=== PATIENT | male | born 1995 ===

== ENCOUNTER 2018-01-04 18:01 | Inpatient (IN) | payer MEDICAID, OTHER ==
--- NOTE | 2018-01-04 18:34 | C.PDOC ---
History Of Present Illness 22 y/o male presents to ED requesting Heroin detox. Patient states last used was 3 hours ago and currently denies suicidal ideation, homicidal ideation or any physical complaints at this time. Time Seen by Provider: 01/04/18 18:24 Chief Complaint (Nursing): Substance Abuse History Per: Patient History/Exam Limitations: no limitations Onset/Duration Of Symptoms: Days Current Symptoms Are (Timing): Still Present Suicide/Self Injury Attempted (Context): None Past Medical History Reviewed: Historical Data, Nursing Documentation, Vital Signs Vital Signs: Last Vital Signs Temp 98 F 01/04/18 20:26 Pulse 72 01/04/18 20:26 Resp 18 01/04/18 20:26 BP 107/70 01/04/18 20:26 Pulse Ox 97 01/04/18 20:26 - Medical History PMH: Anxiety, Depression Surgical History: No Surg Hx Family History: States: No Known Family Hx - Social History Hx Alcohol Use: Yes Hx Substance Use: Yes - Immunization History Hx Tetanus Toxoid Vaccination: No Hx Influenza Vaccination: No Hx Pneumococcal Vaccination: No Review Of Systems Constitutional: Negative for: Fever, Chills Cardiovascular: Negative for: Chest Pain Respiratory: Negative for: Shortness of Breath Skin: Negative for: Rash Psych: Negative for: Suicidal ideation, Withdrawal Physical Exam - Physical Exam Appears: Non-toxic, No Acute Distress Skin: Warm, Dry, No Rash Head: Atraumatic, Normacephalic Eye(s): bilateral: Normal Inspection Oral Mucosa: Moist Neck: Normal ROM, Supple Cardiovascular: Rhythm Regular Respiratory: Normal Breath Sounds, No Rales, No Rhonchi, No Wheezing Gastrointestinal/Abdominal: Soft, No Tenderness, No Guarding, No Rebound Extremity: Normal ROM, Capillary Refill (<2 seconds) Neurological/Psych: Oriented x3, Normal Speech, Normal Cognition ED Course And Treatment - Laboratory Results Result Diagrams: 01/04/18 19:00 01/04/18 19:00 O2 Sat by Pulse Oximetry: 98 (RA) Pulse Ox Interpretation: Normal Medical Decision Making Medical Decision Makin:40 Medically cleared Disposition - Disposition Disposition: HOSPITALIZED Disposition Time: 08:00 Condition: STABLE - Clinical Impression Clinical Impression: Drug abuse - Scribe Statement The provider has reviewed the documentation as recorded by the Brandenibemanuel Loredo All medical record entries made by the Scribe were at my direction and personally dictated by me. I have reviewed the chart and agree that the record accurately reflects my personal performance of the history, physical exam, medical decision making, and the department course for this patient. I have also personally directed, reviewed, and agree with the discharge instructions and disposition. Decision To Admit - Pt Status Changed To: Hospital Disposition Of: Inpatient - Admit Certification Admit to Inpatient:: After my assessment, the patient will require hospitalization for at least two midnights. This is because of the severity of symptoms shown, intensity of services needed, and/or the medical risk in this patient being treated as an outpatient. - InPatient: Physician Admission Certification: I certify that this patient requires 2 or more midnights of care for the following reason:: needs detox - . Bed Request Type: Detox Admitting Physician: Alexandra Burns Patient Diagnosis: Drug abuse
[2018-01-04 19:09] LABS: BASO % 0.7 % (0.0-2.0); EOS # 0.2 K/uL (0.0-0.7); EOS % 2.4 % (0.0-4.0); HEMOGLOBIN 15.3 g/dL (12.0-18.0); LYMPH # 2.7 K/uL (1.0-4.3); LYMPH % 41.9 % (20.0-40.0); MEAN CELL VOLUME 93.7 fL (80.0-94.0); MEAN CORPUSCULAR HEMOGLOBIN 33.4 pg (27.0-31.0); MEAN CORPUSCULAR HGB CONC 35.6 g/dL (33.0-37.0); MEAN PLATELET VOLUME 9.2 fL (7.2-11.7); MONO # 0.5 K/uL (0.0-0.8); MONO % 7.2 % (0.0-10.0); NEUT # 3.1 K/uL (1.8-7.0); NEUT % 47.8 % (50.0-75.0); NRBC % 0.1 % (0.0-2.0); RBC 4.58 Mil/uL (4.40-5.90); RED CELL DISTRIBUTION WIDTH 12.6 % (11.5-14.5); WHITE BLOOD COUNT 6.5 K/uL (4.8-10.8)
[2018-01-04 19:12] LABS: SQUAMOUS EPITHIAL 1 /hpf (0-5); URINE BACTERIA RARE (<OCC); URINE BILIRUBIN NEGATIVE (NEGATIVE); URINE BLOOD NEGATIVE (NEGATIVE); URINE CLARITY Hazy (Clear); URINE COLOR Amber (YELLOW); URINE GLUCOSE (UA) NORMAL (Normal); URINE LEUKOCYTE ESTERASE NEG Leu/uL (Negative); URINE PROTEIN NEGATIVE (NEGATIVE); URINE UROBILINOGEN NORMAL mg/dL (0.2-1.0)
[2018-01-04 19:21] LABS: ALB/GLOB RATIO 1.2 (1.0-2.1); ALBUMIN 4.4 g/dL (3.5-5.0); ALT/SGPT 21 U/L (21-72); AST/SGOT 16 U/L (17-59); BLOOD UREA NITROGEN 11 mg/dL (9-20); CALCIUM 9.4 mg/dl (8.6-10.4); GFR AFRICAN-AMERICAN > 60; GFR NON-AFRICAN AMERICAN > 60
[2018-01-04 19:29] LABS: BARBITURATES, UR NEGATIVE (NEGATIVE); BENZODIAZEPINES, UR NEGATIVE (NEGATIVE); PHENCYCLIDINE, UR NEGATIVE (NEGATIVE)
[2018-01-04 19:30] LABS: OPIATES, UR POSITIVE (NEGATIVE)
--- NOTE | 2018-01-04 20:21 | PCM.BM ---
<Julian Ramirez - Last Filed: 01/04/18 20:20> Treatment Plan Problems - Problems identified on initial assessmt potential for opiatr withdrawal Date Initiated: 01/04/18 Time Initiated: 20:21 Status: Active Treatment assets and liabiliti Patient Assests: ADL independent, physically healthy, negotiates basic needs Patient Liabilities: substance abuse - Milieu Protocol Maintain good personal hygiene: daily Encourage regular showers, daily Remind patient to perform daily oral care, daily Assist patient to perform ADL's Conduct patient checks and document Observation sheet: Q15 minutes Maintain personal safety: every shift Educate patient to report safety concerns to staff, every shift Monitor environment for contraband/sharps Medication safety: Monitor for expected outcome, potential side effects: every shift, Assess barriers to learning: every shift, Assess readiness for medication education: every shift <Ann-Marie Wallace - Last Filed: 01/08/18 12:11> - Diagnosis (1) Opioid use disorder, severe, dependence Status: Acute Interventions: 01/08/18 12:11 * Assess 7x/week regarding severity of withdrawal * Educate regarding risks, benefits, side effects and alternatives of medications * Use Motivational Interviewing for abstinence * Use CBT for relapse prevention * Medication management for withdrawal symptoms * Encourage medication assisted treatment *
[2018-01-04] MEDS ORDERED: Aluminum Hydroxide/Magnesium Hydroxide Susp (30 mL) PO PRN (22:23)
--- NOTE | 2018-01-05 07:01 | PCM.PSYCH ---
Initial Psychiatric Evaluation - Initial Psychiatric Evaluation Type of Admission: Voluntary Legal Status: Capacity Chief Complaint (in patient's own words): I came to get help.' History of Present Illness and Precipitating Events: Pt is a 22 year old HM, unemployed, who lives with his father, presented to [facility] to get help in heroin detox. Pt shoots about 6-8 bags of heroin on a daily basis as well as smoking 7-8 cigarettes daily. Pt denies drinking alcohol and using cocaine. Pt stated, I just started smoking cocaine 5 months ago, I sniff about to 1 gram when I do. 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 Pt has been to [facility] 3 weeks ago but AMA. Pt stated the Vivitro did help. Pt has a hx of arrest of drug possessions and assaults, he was incarcerated in 2013 for an assault, he was in half-way for three years. Pt is on probation and states, I will call her when I get out. He denies any past history of inpatient psychiatric hospitalizations or any follow-up with any psychiatrist. He reports irritability , but denies any feelings of hopelessness and helplessness. He denies suicidal ideation or homicidal ideations. he denies any auditory or visual hallucinations or any psychosis. He reports withdrawal symptoms from heroin including nausea, vomiting, diarrhea, abdominal cramps and pains. Past medical history None reported Current Medications: Active Medications Generic Name Dose Route Start Last Admin Trade Name Freq PRN Reason Stop Dose Admin Acetaminophen 650 mg 01/04/18 22:23 Tylenol 325mg Tab PO Q4H PRN Fever greater than 101 F Al Hydrox/Mg Hydrox/Simethicone 30 ml 01/04/18 22:23 Maalox 30 Ml PO TID PRN Indigestion / Heartburn Clonidine HCl 0.1 mg 01/04/18 21:45 Catapres PO Q8 PRN COWS Score More or Equal to 5 Hydroxyzine HCl 25 mg 01/04/18 22:24 Atarax PO Q6 PRN Agitation Loperamide HCl 2 mg 01/04/18 21:42 Imodium PO Q8 PRN Diarrhea Nicotine 1 patch 01/05/18 10:00 Nicoderm Cq TD DAILY MAYELA Ondansetron HCl 4 mg 01/04/18 21:42 Zofran Tab PO Q8 PRN Nausea/Vomiting Pseudoephedrine HCl 60 mg 01/04/18 22:23 Sudafed Tab PO QID PRN Nasal/Sinus Congestion Trazodone HCl 50 mg 01/04/18 21:43 Desyrel PO HS PRN Sleep Past Psychiatric History - Past Psychiatric History Previous Treatment History: Inpatient Pertinent Medical Hx (Current Medical&Sleep Prob, Allergies): Allergies Allergy/AdvReac Type Severity Reaction Status Date / Time No Known Allergies Allergy Verified 01/04/18 18:13 No Known Home Med 01/04/18 Review of Systems - Review of Systems All systems: reviewed and no additional remarkable complaints except - Psychiatric Psychiatric: Anxiety, Irritability. absent: Suicidal Ideation Mental Status Examination - Personal Presentation Personal Presentation: Looks stated age - Affect Affect: Constricted - Motor Activity Motor Activity: Calm - Reliability in Providing Information Reliability in Providing Information: Fair - Speech Speech: Organized - Mood Mood: Anxious - Formal Thought Process Formal Thought Process: No Impairment - Obsessions/Compulsions Obsessions: No Compulsions: No - Cognitive Functions Orientation: Person, Place, Situation, Time Sensorium: Alert Attention/Concentration: Attentive Abstract Thinking: [place] Estimate of Intelligence: Below average Judgement: Imparied, as evidence by: Poor judgement, Imparied, as evidence by: Lack of insight into illness - Risk Risk: Withdrawal, Diminished functioning - Strength & Assets Inventory Strength & Assets Inventory: Family support DSM 5 DX - DSM 5 DSM 5 Diagnosis: Opiate use disorder severe Opiate withdrawal Cocaine use disorder moderate - Recommended/Plan of Treatment Treatment Recommendations and Plan of Treatment: Opioid use disorder severe CBT Psychoeducation Supportive therapy, individual therapy Use DE for abstinence Opioid withdrawal CBT Psychoeducation Supportive therapy, individual therapy Clonidine when necessary Subutax taper Cocaine use disorder moderate Monitor signs and symptoms Use DE for abstinence - Smoking Cessation Smoking Cessation Initiated: No
[2018-01-05] MEDS ORDERED: Buprenorphine Hydrochloride 2 mg SL ONE ×2 (16:13→17:14)
[2018-01-06] MEDS ORDERED: Buprenorphine Hydrochloride 2 mg SL ONE (10:00)
--- NOTE | 2018-01-06 15:28 | PCM.PYCHPN ---
Psychiatric Progress Note - Psychiatric Progress Note Patient seen today, length of contact: 15 min Patient Chief Complaint: I came to get help.' Problems Identified/Issues Discussed: Patient seen and evaluated, chart reviewed and discussed with the nurse. Patient still reports withdrawal symptoms including nausea, cramps, sweating and headaches. He denies any feelings of hopelessness and helplessness. Patient denies any auditory or visual hallucinations, or any psychotic symptoms. He reports improvement in his sleep and appetite. He is tolerating the withdrawal medications and denies any side effects. Supportive therapy and psychoeducation were given. Medication Change: Yes Medical Record Reviewed: Yes Mental Status Examination - Cognitive Function Orientation: Person, Place, Situation, Time Memory: Intact Attention: WNL Concentration: Poor Association: WNL Fund of Knowledge: Poor - Mood Mood: Anxious - Affect Affect: Constricted - Speech Speech: Soft - Formal Thought Process Formal Thought Process: No Impairment - Suicidal Ideation Suicidal Ideation: No - Homicidal Ideation Homicidal Ideation: No Goal/Treatment Plan - Goal/Treatment Plan Need for Continued Stay: Severe depression anxiety, Severe functional impairment Progress Toward Problem(s) and Goals/Treatment Plan: Opioid use disorder severe CBT Psychoeducation Supportive therapy, individual therapy Use MO for abstinence Opioid withdrawal CBT Psychoeducation Supportive therapy, individual therapy Clonidine when necessary Subutax taper Cocaine use disorder moderate Monitor signs and symptoms Use MO for abstinence - Smoking Cessation Smoking Cessation Initiated: No
--- NOTE | 2018-01-07 09:09 | PCM.PYCHPN ---
Psychiatric Progress Note - Psychiatric Progress Note Patient seen today, length of contact: 15 min Patient Chief Complaint: I came to get help.' Problems Identified/Issues Discussed: Patient seen and evaluated, chart reviewed and discussed with the nurse. Patient still reports withdrawal symptoms including nausea, cramps, sweating and headaches. He reports improvement in his sleep and appetite. He denies any feelings of hopelessness and helplessness. Patient denies any auditory or visual hallucinations, or any psychotic symptoms. He is tolerating the withdrawal medications and denies any side effects. Supportive therapy and psychoeducation were given. Medication Change: Yes Medical Record Reviewed: Yes Mental Status Examination - Cognitive Function Orientation: Person, Place, Situation, Time Memory: Intact Attention: WNL Concentration: Poor Association: WNL Fund of Knowledge: Poor - Mood Mood: Anxious - Affect Affect: Constricted - Speech Speech: Soft - Formal Thought Process Formal Thought Process: No Impairment - Suicidal Ideation Suicidal Ideation: No - Homicidal Ideation Homicidal Ideation: No Goal/Treatment Plan - Goal/Treatment Plan Need for Continued Stay: Severe depression anxiety, Severe functional impairment Progress Toward Problem(s) and Goals/Treatment Plan: Opioid use disorder severe CBT Psychoeducation Supportive therapy, individual therapy Use MT for abstinence Opioid withdrawal CBT Psychoeducation Supportive therapy, individual therapy Clonidine when necessary Subutax taper Cocaine use disorder moderate Monitor signs and symptoms Use MT for abstinence
[2018-01-07] MEDS: Buprenorphine Hydrochloride 2 mg SL SCH (09:14)
[2018-01-08] MEDS: Buprenorphine Hydrochloride 2 mg SL SCH (10:40)
--- NOTE | 2018-01-08 12:11 | PCM.PYCHPN ---
Psychiatric Progress Note - Psychiatric Progress Note Patient seen today, length of contact: 18 min Patient Chief Complaint: "i feel better" Problems Identified/Issues Discussed: The pt is seen, chart reviewed, case discussed with staff. The pt is compliant with medications and reports no side-effects. Symptoms are improving but needs more time to stabilize. After care discussed, support and psychoeducation given. Medication Change: Yes (detox changes daily) Medical Record Reviewed: Yes Mental Status Examination - Cognitive Function Orientation: Person, Place, Situation, Time Memory: Intact Attention: WNL Concentration: Poor Association: WNL Fund of Knowledge: Poor - Mood Mood: Anxious - Affect Affect: Constricted - Speech Speech: Soft - Formal Thought Process Formal Thought Process: No Impairment - Suicidal Ideation Suicidal Ideation: No - Homicidal Ideation Homicidal Ideation: No Goal/Treatment Plan - Goal/Treatment Plan Need for Continued Stay: Discharge may exacerbated symptoms, Severe functional impairment Progress Toward Problem(s) and Goals/Treatment Plan: Taper with subutex Gabapentin for augmentation if needed As needed medications All risks, benefits and alternatives of the meds discussed, and the pt agreed and understood. Attend groups and activities Supportive therapy and psychoeducation VT for abstinence CBT for relapse prevention Encourage MAT Refer to rehab or IOP, and self-help groups Smoking cessation with VT Nicotine patch if needed Estimated Date of D/C: 01/10/18 - Smoking Cessation Smoking Cessation Initiated: Yes
[2018-01-09] MEDS: Buprenorphine Hydrochloride 2 mg SL SCH (09:59)
--- NOTE | 2018-01-09 12:54 | PCM.PYCHPN ---
Psychiatric Progress Note - Psychiatric Progress Note Patient seen today, length of contact: 15 min Patient Chief Complaint: "I can't sleep well" Problems Identified/Issues Discussed: The pt is seen, chart reviewed, case discussed with staff. Support and psychoeducation given, CBT and NM used briefly No new symptoms reported, improving slowly and needs more time No SEs from medications, risks discussed. After care discussed - wants Vivitrol Medication Change: Yes (detox changes daily) Medical Record Reviewed: Yes Mental Status Examination - Cognitive Function Orientation: Person, Place, Situation, Time Memory: Intact Attention: WNL Concentration: Poor Association: WNL Fund of Knowledge: Poor - Mood Mood: Anxious - Affect Affect: Constricted - Speech Speech: Soft - Formal Thought Process Formal Thought Process: No Impairment - Suicidal Ideation Suicidal Ideation: No - Homicidal Ideation Homicidal Ideation: No Goal/Treatment Plan - Goal/Treatment Plan Need for Continued Stay: Severe depression anxiety, Severe functional impairment Progress Toward Problem(s) and Goals/Treatment Plan: Taper with subutex Gabapentin for augmentation if needed As needed medications All risks, benefits and alternatives of the meds discussed, and the pt agreed and understood. Attend groups and activities Supportive therapy and psychoeducation NM for abstinence CBT for relapse prevention Encourage MAT Refer to rehab or IOP, and self-help groups Smoking cessation with NM Nicotine patch if needed Estimated Date of D/C: 01/10/18
[2018-01-10 05:58] VITALS: O2SAT 99
[2018-01-10 08:30] VITALS: BP 108/66; PULSE 73; RESP 19; TEMP 97.6
--- NOTE | 2018-01-10 08:38 | PCM.PYCHDC ---
Mental Status Examination - Mental Status Examination Orientation: Person, Place, Situation, Time Memory: Intact Mood: Anxious Affect: Constricted Speech: Appropriate Attention: WNL Concentration: WNL Association: WNL Fund of Knowledge: WNL Formal Thought Process: No Impairment Suicidal Ideation: No Current Homicidal Ideation?: No Discharge Summary - Discharge Note Reason for Hospitalization: Opioid detox Consultations:: List each consultation separately and include: 1. Reason for request. 2. Findings. 3. Follow-up Summary of Hospital Course include:: 1. Description of specific treatment plan utilized for patients during their course of treatmen. 2. Summarize the time- course for resolution of acute symptoms and/or regressed behaviors. 3. Describe issues identified and worked on during hospitalization. 4. Describe medication utilized. 5. Describe medical problems identified and treated. 6. Reassessment of suicide risk Summary of Hospital Course: The pt was admitted and started on treatment with psychotherapy, support, psychoeducation and medications. [place] and CBT used. The pt attended groups and activities, as well as milieu therapy. All the risks and benefits of medications are discussed and the patient understood and agreed. The pt improved with the treatments provided. After care discussed with the patient. He will go to a [facility] dr or clinic ( [facility]) but he also considers Suboxone. - Final Diagnosis (DSM 5) Condition upon Discharge: STABLE DSM 5: Opioid use disorder severe Opioid withdrawal Cocaine use disorder moderate Disposition: HOME/ ROUTINE Follow-up Treatment Plan: Continue below medications after discharge. Follow after care plan as discussed. Use relapse prevention skills Return to ER or call 911 if suicidal, homicidal or symptoms relapse. Stay away from stress, alcohol and drugs. See primary doctor regularly and get labs. Prescriptions/Medication Reconciliation: hydrOXYzine HCl [Atarax] 25 mg PO BID PRN #60 tab PRN Reason: Agitation QUEtiapine [SEROquel] 50 mg PO HS #30 tab traZODone [Desyrel] 100 mg PO HS PRN #30 tab PRN Reason: Sleep
[2018-01-10] MEDS ORDERED: Buprenorphine Hydrochloride 2 mg SL ONE (10:00)
== END 2018-01-10 09:45 | disposition home or self-care (01) | DRG 745 ==
LOC: C.ER 18:01 → C.7D 19:54
PROVIDERS: ADMIT Psychiatry & Neurology Psychiatry; ATTEND Psychiatry & Neurology Psychiatry
PROC: HZ2ZZZZ Detoxification Services for Substance Abuse Treatment (ICD-10-PCS; principal; 2018-01-04)
PROC: HZ59ZZZ Individual Psychotherapy for Substance Abuse Treatment, Supportive (ICD-10-PCS; 2018-01-04)
PROC: HZ46ZZZ Group Counseling for Substance Abuse Treatment, Psychoeducation (ICD-10-PCS; 2018-01-04)
DX: F11.23 Opioid dependence with withdrawal (principal); F14.20 Cocaine dependence, uncomplicated; F17.210 Nicotine dependence, cigarettes, uncomplicated

== ENCOUNTER 2018-02-25 15:25 | Inpatient (IN) | payer MEDICAID ==
--- NOTE | 2018-02-25 16:00 | C.PDOC ---
History Of Present Illness 23 year old male presents to the ER requesting detox from heroin and cocaine. Patient has no physical complaints at this time. He denies suicidal or homicidal ideations. Time Seen by Provider: 02/25/18 15:53 Chief Complaint (Nursing): Substance Abuse History Per: Patient History/Exam Limitations: no limitations Onset/Duration Of Symptoms: Days Current Symptoms Are (Timing): Still Present Modifying Factor(s): Narcotics, Cocaine Severity: Moderate Associated Symptoms: denies: Suicidal Thoughts Past Medical History Reviewed: Historical Data, Nursing Documentation, Vital Signs Vital Signs: Last Vital Signs Temp 98.4 F 02/27/18 06:35 Pulse 62 02/27/18 06:35 Resp 16 02/27/18 06:35 BP 106/61 02/27/18 06:35 Pulse Ox 96 02/27/18 12:10 - Medical History PMH: Anxiety, Depression Surgical History: No Surg Hx - [facility] DETOXIFICATION SERVICES FOR SUBSTANCE ABUSE TREATMENT (01/04/18) GROUP TRANSFER [employer]PER[employer] DRIER FOR SUBSTANCE ABUSE TREATMENT, PSYCHOEDUCATION (01/04/18) INDIV PSYCHOTHERAPY FOR SUBSTANCE ABUSE TREATMENT, SUPPORT (01/04/18) Family History: States: No Known Family Hx - Social History Hx Alcohol Use: Yes Hx Substance Use: Yes - Immunization History Hx Tetanus Toxoid Vaccination: No Hx Influenza Vaccination: No Hx Pneumococcal Vaccination: No Review Of Systems Constitutional: Negative for: Fever Cardiovascular: Negative for: Chest Pain Respiratory: Negative for: Cough, Shortness of Breath Gastrointestinal: Negative for: Nausea, Vomiting Neurological: Negative for: Headache, Dizziness Psych: Positive for: Other (substance abuse ). Negative for: Anxiety, Depression, Suicidal ideation, Withdrawal Physical Exam - Physical Exam Appears: Well, Non-toxic, No Acute Distress, Other (flat affect) Skin: Warm, Dry, No Rash Head: Atraumatic, Normacephalic Eye(s): bilateral: Normal Inspection Oral Mucosa: Moist Cardiovascular: Rhythm Regular Respiratory: Normal Breath Sounds, No Rales, No Rhonchi, No Wheezing Gastrointestinal/Abdominal: Normal Exam, Bowel Sounds, Soft, No Tenderness Extremity: Bilateral: Atraumatic, Normal Color And Temperature, Normal ROM Neurological/Psych: Oriented x3 Gait: Steady ED Course And Treatment - Laboratory Results Result Diagrams: 02/25/18 16:56 02/25/18 16:56 O2 Sat by Pulse Oximetry: 96 (RA) Pulse Ox Interpretation: Normal Progress Note: Blood work, UA, UDS ordered amd reviewed. 18:40- Patient medically cleared. 19:10- Patient accepted for detox admission by Dr. Mendez. Disposition Counseled Patient/Family Regarding: Studies Performed, Diagnosis - Disposition Disposition: HOSPITALIZED Disposition Time: 19:10 Condition: STABLE - Clinical Impression Clinical Impression: Opioid use disorder, severe, dependence - Scribe Statement The provider has reviewed the documentation as recorded by the Yvette Dalton Provider Attestation: All medical record entries made by the Yvette were at my direction and personally dictated by me. I have reviewed the chart and agree that the record accurately reflects my personal performance of the history, physical exam, medical decision making, and the department course for this patient. I have also personally directed, reviewed, and agree with the discharge instructions and disposition. Decision To Admit - Pt Status Changed To: Hospital Disposition Of: Inpatient - Admit Certification Admit to Inpatient:: After my assessment, the patient will require hospitalization for at least two midnights. This is because of the severity of symptoms shown, intensity of services needed, and/or the medical risk in this patient being treated as an outpatient. - InPatient: Physician Admission Certification: I certify that this patient requires 2 or more midnights of care for the following reason:: see notes - . Bed Request Type: Detox Admitting Physician: Elmer Mendez Patient Diagnosis: Opioid use disorder, severe, dependence
[2018-02-25 17:05] LABS: BASO % 0.6 % (0.0-2.0); EOS # 0.2 K/uL (0.0-0.7); EOS % 2.7 % (0.0-4.0); HEMOGLOBIN 15.8 g/dL (12.0-18.0); LYMPH # 2.3 K/uL (1.0-4.3); LYMPH % 39.1 % (20.0-40.0); MEAN CELL VOLUME 93.7 fL (80.0-94.0); MEAN CORPUSCULAR HEMOGLOBIN 32.4 pg (27.0-31.0); MEAN CORPUSCULAR HGB CONC 34.6 g/dL (33.0-37.0); MEAN PLATELET VOLUME 9.1 fL (7.2-11.7); MONO # 0.5 K/uL (0.0-0.8); NEUT # 2.9 K/uL (1.8-7.0); NEUT % 49.6 % (50.0-75.0); RBC 4.88 Mil/uL (4.40-5.90); WHITE BLOOD COUNT 5.9 K/uL (4.8-10.8)
[2018-02-25 17:15] LABS: SQUAMOUS EPITHIAL < 1 /hpf (0-5); URINE BILIRUBIN NEGATIVE (NEGATIVE); URINE BLOOD NEGATIVE (NEGATIVE); URINE CLARITY Hazy (Clear); URINE COLOR Amber (YELLOW); URINE GLUCOSE (UA) NORMAL (Normal); URINE LEUKOCYTE ESTERASE NEG Leu/uL (Negative); URINE PROTEIN NEGATIVE (NEGATIVE)
[2018-02-25 17:20] LABS: ALB/GLOB RATIO 1.6 (1.0-2.1); ALBUMIN 4.7 g/dL (3.5-5.0); ALT/SGPT 16 U/L (21-72); AST/SGOT 20 U/L (17-59); BLOOD UREA NITROGEN 10 mg/dL (9-20); CALCIUM 9.3 mg/dl (8.6-10.4); GFR AFRICAN-AMERICAN > 60; GFR NON-AFRICAN AMERICAN > 60
[2018-02-25 17:43] LABS: BARBITURATES, UR NEGATIVE (NEGATIVE); BENZODIAZEPINES, UR NEGATIVE (NEGATIVE); PHENCYCLIDINE, UR NEGATIVE (NEGATIVE)
[2018-02-25 17:44] LABS: OPIATES, UR POSITIVE (NEGATIVE)
--- NOTE | 2018-02-25 20:03 | PCM.BM ---
<Julian Ramirez - Last Filed: 02/25/18 20:01> Treatment Plan Problems - Problems identified on initial assessmt potential for opiate withdrawal Date Initiated: 02/25/18 Time Initiated: 20:02 Status: Active Treatment assets and liabiliti Patient Assests: ADL independent, physically healthy, negotiates basic needs Patient Liabilities: substance abuse - Milieu Protocol Maintain good personal hygiene: daily Encourage regular showers, daily Remind patient to perform daily oral care, daily Assist patient to perform ADL's Conduct patient checks and document Observation sheet: Q15 minutes Maintain personal safety: every shift Educate patient to report safety concerns to staff, every shift Monitor environment for contraband/sharps Medication safety: Monitor for expected outcome, potential side effects: every shift, Assess barriers to learning: every shift, Assess readiness for medication education: every shift <Rocío Bah - Last Filed: 02/27/18 09:03> Family Contact Family involvement: Famliy/SO not involved - Goals for Treatment Patient goals for treatment: Complete detox and apply for short-term rehab. Discharge/Continuing Care - Education Needs Education Needs: Patient Medication, Patient Diagnosis/Disease Process, Patient Coping Skills, Patient Anger Management skills, Patient Placement options, Patient Community resources - Discharge Discharge Criteria: No longer exhibiting s/s of withdrawal, Reduction of target symptoms Discharge to:: Substance Abuse Rehab - Treatment Team Participation Patient/Family/SO Statement: 02/27/18 09:03 "I wanna got to a 28-day program after this..." Discussed with Family/SO: No Was Patient/Family/SO present at Treatment Team Meeting: Yes
--- NOTE | 2018-02-26 14:37 | PCM.PSYCH ---
Initial Psychiatric Evaluation - Initial Psychiatric Evaluation Type of Admission: Voluntary Legal Status: Capacity Chief Complaint (in patient's own words): "I want to be clean" History of Present Illness and Precipitating Events: Patient seen during treatment team. Patient is a 23 year old unemployed male who lives with his father. The patient came to [facility] ED to detox from heroin. He admits to using 3-4 bags of heroin a day which he injects. The patient also injects cocaine. He smokes 10 cigarettes a day. The patient states that his plan is to go to rehab from here. The patient was admitted to the detox unit at [facility] in December. He states that he relapsed two weeks after discharge. He denies aud. or visual hallucinations, SI/HI, paranoia. Past medical Hx: none Social hx: unemployed, lives with his father Family psych hx: denies Current Medications: Active Medications Generic Name Dose Route Start Last Admin Trade Name Freq PRN Reason Stop Dose Admin Clonidine HCl 0.1 mg 02/25/18 20:53 Catapres PO Q8 PRN opiate withdrawal Hydroxyzine HCl 25 mg 02/25/18 20:51 Atarax PO Q6 PRN Anxiety Ibuprofen 600 mg 02/25/18 20:52 Motrin Tab PO Q8 PRN Pain, moderate (4-7) Nicotine 1 patch 02/26/18 10:00 02/26/18 10:20 Nicoderm Cq TD 1 patch DAILY MAYELA Administration Trazodone HCl 50 mg 02/25/18 20:51 Desyrel PO HS PRN Insomnia Past Psychiatric History - Past Psychiatric History Previous Treatment History: None Pertinent Medical Hx (Current Medical&Sleep Prob, Allergies): Allergies Allergy/AdvReac Type Severity Reaction Status Date / Time No Known Allergies Allergy Verified 02/25/18 15:39 No Known Home Med 02/25/18 Review of Systems - Psychiatric Psychiatric: Abnormal Sleep Pattern, Anxiety. absent: Hallucinations, Homicidal Ideation, Paranoia, Suicidal Ideation Mental Status Examination - Personal Presentation Personal Presentation: Looks stated age - Affect Affect: Broad - Motor Activity Motor Activity: Calm - Reliability in Providing Information Reliability in Providing Information: Fair - Speech Speech: Organized - Mood Mood: Neutral - Formal Thought Process Formal Thought Process: No Impairment - Cognitive Functions Orientation: Person, Place, Situation, Time Sensorium: Alert Abstract Thinking: [place] Estimate of Intelligence: Average Judgement: Imparied, as evidence by: Lack of insight into illness Memory: Recent intact, as evidence by: Ability to recall events of the day, Remote intact, as evidenced by: Abilit to recall sig. life events - Risk Risk: Withdrawal, Diminished functioning - Strength & Assets Inventory Strength & Assets Inventory: Cooperative - Limitations Limitations: Other DSM 5 DX - DSM 5 DSM 5 Diagnosis: Opioid use disorder, severe Opioid withdrawal Cocaine use disorder, moderate Tobacco use disorder - Recommended/Plan of Treatment Treatment Recommendations and Plan of Treatment: Opioid use disorder severe CBT Psychoeducation Supportive therapy, individual therapy Use [place] for abstinence Opiod withdrawal psychoeducation Subutex taper Clonidine if necessary Cocaine use disorder moderate Monitor signs and symptoms Use [place] for abstinence Tobacco use disorder CBT Psychoeducation Supportive therapy, individual therapy Use [place] for abstinence Nicotine patch if needed 35 min Projected ELOS: 4 days
[2018-02-27 06:36] VITALS: BP 106/61; PULSE 62; RESP 16; TEMP 98.4
--- NOTE | 2018-02-27 10:35 | PCM.PYCHDC ---
Mental Status Examination - Mental Status Examination Orientation: Person Discharge Summary - Discharge Note Consultations:: List each consultation separately and include: 1. Reason for request. 2. Findings. 3. Follow-up Summary of Hospital Course include:: 1. Description of specific treatment plan utilized for patients during their course of treatmen. 2. Summarize the time- course for resolution of acute symptoms and/or regressed behaviors. 3. Describe issues identified and worked on during hospitalization. 4. Describe medication utilized. 5. Describe medical problems identified and treated. 6. Reassessment of suicide risk Summary of Hospital Course: Patient seen during treatment team. Patient is a 23 year old unemployed male who lives with his father. The patient came to [facility] ED to detox from heroin. He admits to using 3-4 bags of heroin a day which he injects. The patient also injects cocaine. He smokes 10 cigarettes a day. The patient states that his plan is to go to rehab from here. The patient was admitted to the detox unit at [facility] in December. He states that he relapsed two weeks after discharge. He denies aud. or visual hallucinations, SI/HI, paranoia. Past medical Hx: none Social hx: unemployed, lives with his father Family psych hx: denies - Final Diagnosis (DSM 5) Condition upon Discharge: GOOD Disposition: HOME/ ROUTINE Follow-up Treatment Plan: Opioid use disorder severe CBT Psychoeducation Supportive therapy, individual therapy Use [place] for abstinence Opiod withdrawal psychoeducation Subutex taper Clonidine if necessary Cocaine use disorder moderate Monitor signs and symptoms Use [place] for abstinence Tobacco use disorder CBT Psychoeducation Supportive therapy, individual therapy Use [place] for abstinence Nicotine patch if needed 35 min Prescriptions/Medication Reconciliation: traZODone [Desyrel] 50 mg PO HS PRN #30 tab PRN Reason: Insomnia
[2018-02-27 12:10] VITALS: O2SAT 96
== END 2018-02-27 11:12 | disposition home or self-care (01) | DRG 745 ==
LOC: C.ER 15:25 → C.7D 19:10
PROC: HZ2ZZZZ Detoxification Services for Substance Abuse Treatment (ICD-10-PCS; principal; 2018-02-25)
PROC: HZ52ZZZ Individual Psychotherapy for Substance Abuse Treatment, Cognitive-Behavioral (ICD-10-PCS; 2018-02-25)
PROC: HZ59ZZZ Individual Psychotherapy for Substance Abuse Treatment, Supportive (ICD-10-PCS; 2018-02-25)
PROC: HZ56ZZZ Individual Psychotherapy for Substance Abuse Treatment, Psychoeducation (ICD-10-PCS; 2018-02-25)
PROC: HZ42ZZZ Group Counseling for Substance Abuse Treatment, Cognitive-Behavioral (ICD-10-PCS; 2018-02-25)
PROC: HZ46ZZZ Group Counseling for Substance Abuse Treatment, Psychoeducation (ICD-10-PCS; 2018-02-25)
DX: F11.23 Opioid dependence with withdrawal (principal); F14.20 Cocaine dependence, uncomplicated; F17.210 Nicotine dependence, cigarettes, uncomplicated; F41.9 Anxiety disorder, unspecified; G47.00 Insomnia, unspecified

== ENCOUNTER 2018-03-06 05:36 | Inpatient (IN) | payer MEDICAID ==
--- NOTE | 2018-03-06 06:10 | C.PDOC ---
Time Seen by Provider: 03/06/18 06:05 Chief Complaint (Nursing): Substance Abuse Past Medical History Vital Signs: Last Vital Signs Temp 99.7 F H 03/06/18 05:52 Pulse 124 H 03/06/18 05:52 Resp 20 03/06/18 05:52 BP 81/37 L 03/06/18 05:52 Pulse Ox 98 03/06/18 05:52 - Medical History PMH: Anxiety, Depression Denies: Diabetes, Hepatitis, HIV, HTN, Seizures, Sexually Transmitted Disease - [facility] Procedures DETOXIFICATION SERVICES FOR SUBSTANCE ABUSE TREATMENT (02/25/18) GROUP NURSE CHEMICAL DEPENDENCY FOR SUBSTANCE ABUSE TREATMENT, PSYCHOEDUCATION (02/25/18) GROUP NURSE CHEMICAL DEPENDENCY FOR SUBSTANCE ABUSE, COGNITIVE BEHAVIORAL (02/25/18) INDIV PSYCHOTHERAPY FOR SUBSTANCE ABUSE TREATMENT, SUPPORT (02/25/18) INDIV PSYCHOTHERAPY FOR SUBSTANCE ABUSE, COGNITIV BEHAVIORAL (02/25/18) INDIV PSYCHOTHERAPY FOR SUBSTANCE ABUSE, PSYCHOEDUCATION (02/25/18) - Social History Hx Alcohol Use: No Hx Substance Use: Yes (heroin) - Immunization History Hx Tetanus Toxoid Vaccination: No Hx Influenza Vaccination: No Hx Pneumococcal Vaccination: No ED Course And Treatment O2 Sat by Pulse Oximetry: 98 Disposition - Disposition
[2018-03-06] MEDS ORDERED: Sodium Chloride 0.9% 1,000 ML IV ONE ×4 (06:11→08:18)
--- NOTE | 2018-03-06 06:14 | C.PDOC ---
History Of Present Illness <Dasha Matute - Last Filed: 03/06/18 06:57> <VadimSamayoa M - Last Filed: 03/06/18 07:31> 23 y/o male presents to ED for complaints of syncope and lightheadedness [employer]. Patient states he took 2 Trazadone and Visteril at 03:00 and did heroin. Patient states he awoke and felt lightheaded while trying to walk to the bathroom then experienced syncope. Patient reports persistent symptoms. Denies intentional overdosing, other drug use, headache, or chest pain. SYNCOPE, LIGHTHEADEDNESS [employer]. PS TOOK 1 TRAZADONE AND VISTERIL @ 0300, DID HEROIN. AWOKE, FELT LIGHTHEADED WHILE TRYING TO WALK TO BATHROOM, +SYNCOPE. CO PERSIST SX. DENIES INTENTIONAL OD, OTHER DRUG USE. NO CARDOSO, CP EXAM MOD DIST HEENT ATRAUM PERRLA LUNGS CTA B/L CV RRR SINUS TACH WARM DRY NO EDEMA NEURO NO FOCAL DEF PSYCH NO SEVERE INTOX, CALM COOPERATIVE NO SI/SA (Dasha Matute) History Per: Patient History/Exam Limitations: no limitations Onset/Duration Of Symptoms: Hrs Current Symptoms Are (Timing): Still Present Recent travel outside of the [place]: No <Dasha Matute - Last Filed: 03/06/18 06:57> <Yao Fierro - Last Filed: 03/06/18 07:31> Time Seen by Provider: 03/06/18 06:05 Chief Complaint (Nursing): Substance Abuse Past Medical History Reviewed: Historical Data, Nursing Documentation, Vital Signs - Medical History PMH: Anxiety, Depression Family History: States: No Known Family Hx - Social History Hx Alcohol Use: No Hx Substance Use: Yes (heroin) - Immunization History Hx Tetanus Toxoid Vaccination: No Hx Influenza Vaccination: No Hx Pneumococcal Vaccination: No <Dasha Matute - Last Filed: 03/06/18 06:57> Vital Signs: Last Vital Signs Temp 98.9 F 03/06/18 07:23 Pulse 111 H 03/06/18 07:23 Resp 24 03/06/18 07:23 BP 89/41 L 03/06/18 07:23 Pulse Ox 98 03/06/18 07:23 - [facility] Procedures DETOXIFICATION SERVICES FOR SUBSTANCE ABUSE TREATMENT (02/25/18) GROUP DERMATOLOGY SALES REPRESENTATIVE FOR SUBSTANCE ABUSE TREATMENT, PSYCHOEDUCATION (02/25/18) GROUP DERMATOLOGY SALES REPRESENTATIVE FOR SUBSTANCE ABUSE, COGNITIVE BEHAVIORAL (02/25/18) INDIV PSYCHOTHERAPY FOR SUBSTANCE ABUSE TREATMENT, SUPPORT (02/25/18) INDIV PSYCHOTHERAPY FOR SUBSTANCE ABUSE, COGNITIV BEHAVIORAL (02/25/18) INDIV PSYCHOTHERAPY FOR SUBSTANCE ABUSE, PSYCHOEDUCATION (02/25/18) Review Of Systems Constitutional: Negative for: Fever, Chills Cardiovascular: Negative for: Chest Pain Gastrointestinal: Negative for: Nausea, Vomiting, Abdominal Pain, Diarrhea Skin: Negative for: Rash Neurological: Positive for: Dizziness, Other (Syncope). Negative for: Weakness , Numbness, Headache Psych: Negative for: Suicidal ideation <Dasha Matute Filed: 03/06/18 06:57> Physical Exam - Physical Exam Appears: Non-toxic, In Acute Distress (Moderate ), Other (Calm; Cooperative ) Skin: Normal Color, Warm, Dry Head: Atraumatic, Normacephalic Eye(s): bilateral: Normal Inspection, PERRL, EOMI Ear(s): Bilateral: Normal Nose: Normal, No Discharge Oral Mucosa: Moist Throat: Normal, No Erythema, No Exudate, No Drooling, No Mass Neck: Supple Chest: Symmetrical, No Tenderness Cardiovascular: Rhythm Regular (Tachycardic ) Respiratory: Normal Breath Sounds, No Decreased Breath Sounds, No Rales, No Rhonchi, No Wheezing, Other (NARD) Gastrointestinal/Abdominal: Normal Exam, Soft, No Tenderness Extremity: Normal ROM, No Deformity Extremity: Bilateral: Atraumatic, Normal Color And Temperature, Normal ROM Pulses: Left Radial: Normal, Right Radial: Normal Neurological/Psych: Oriented x3, Normal Speech, Other (No focal deficts; No severe intoxication; No SI/SA) Gait: Steady <Dasha Matute Filed: 03/06/18 06:57> ED Course And Treatment - Laboratory Results Result Diagrams: 03/06/18 06:17 03/06/18 06:17 ECG: Interpreted By Me ECG Rhythm: Sinus Tachycardia Rate From EC O2 Sat by Pulse Oximetry: 98 (RA) Pulse Ox Interpretation: Normal - Radiology CXR: Interpreted by Me CXR Interpretation: Yes: No Acute Disease <Dasha Matute Filed: 03/06/18 06:57> - Laboratory Results Result Diagrams: 03/06/18 06:17 03/06/18 06:17 <Yao Fierro - Last Filed: 03/06/18 07:31> Progress - Data Reviewed Data Reviewed: Lab, Diagnostic imaging, EKG, Old records - Critical Care Citical Care: Excluding Proc Time Critical Care Time: 90 minutes - Continuity of Care Discussed patient case with:: Patient <Dasha Matute - Last Filed: 03/06/18 06:57> <Yao Fierro - Last Filed: 03/06/18 07:31> - Re-Evaluation Re-evaluation Note: 03/06/18 06:54 PERSIST HYPOTENSION, IVF IN PROGRESS. EXAM UNCH FROM PRIOR. PALP RADIAL PULSE. LABS PENDING (Dasha Matute) Medical Decision Making <Dasha Matute - Last Filed: 03/06/18 06:57> <Yao Fierro - Last Filed: 03/06/18 07:31> Medical Decision Making: Administered IV fluids. Ordered BG, EKG, blood work, CXR, and urinalysis. (Dasha Matute) 728 am - received patient in s/o. Discussed with Dr. Perla and will admit to tele observation. Case discussed with Mo from poison control and for now the treatment is supportive care. (VadimYao Handley) Disposition - Disposition Disposition Time: 07:00 <Dasha Matute - Last Filed: 03/06/18 06:57> Discussed With : Baldo Perla Doctor Will See Patient In The: Hospital Counseled Patient/Family Regarding: Studies Performed, Diagnosis - Disposition Disposition Time: 07:30 <Yao Fierro - Last Filed: 03/06/18 07:31> - Disposition Condition: FAIR Instructions: Drug Abuse and Drug Addiction (DC), Hypokalemia (DC), Low Blood Pressure (DC) Forms: [employer] (Thai) - Clinical Impression Clinical Impression: Drug abuse, Hypotension, Hypokalemia - Scribe Statement The provider has reviewed the documentation as recorded by the Scribe <Dasha Matute - Last Filed: 03/06/18 06:57> <Yao Fierro - Last Filed: 03/06/18 07:31> - Scribe Statement Neetu Atwood All medical record entries made by the Scribe were at my direction and personally dictated by me. I have reviewed the chart and agree that the record accurately reflects my personal performance of the history, physical exam, medical decision making, and the department course for this patient. I have also personally directed, reviewed, and agree with the discharge instructions and disposition. (Dasha Matute) Physician Patient Turnover Patient Signed Over To: Yao Fierro Handoff Comments: LUIS M LABS, DISPO <Dasha Matute - Last Filed: 03/06/18 06:57>
[2018-03-06 06:29] LABS: BASO % 0.2 % (0.0-2.0); EOS % 0.1 % (0.0-4.0); HEMOGLOBIN 15.2 g/dL (12.0-18.0); LYMPH # 0.5 K/uL (1.0-4.3); MEAN CELL VOLUME 93.2 fL (80.0-94.0); MEAN CORPUSCULAR HEMOGLOBIN 32.3 pg (27.0-31.0); MEAN CORPUSCULAR HGB CONC 34.7 g/dL (33.0-37.0); MEAN PLATELET VOLUME 9.3 fL (7.2-11.7); MONO # 0.1 K/uL (0.0-0.8); MONO % 0.6 % (0.0-10.0); NEUT % 95.1 % (50.0-75.0); NRBC % 0.1 % (0.0-2.0); PLATELET COUNT 200 K/uL (130-400); WHITE BLOOD COUNT 11.5 K/uL (4.8-10.8)
[2018-03-06 06:35] LABS: ACETAMINOPHEN < 10.0 ug/mL (10.0-30.0); SALICYLATE < 1.0 mg/dL 1
[2018-03-06 06:56] LABS: ALB/GLOB RATIO 1.5 (1.0-2.1); ALBUMIN 4.2 g/dL (3.5-5.0); ALT/SGPT 26 U/L (21-72); AST/SGOT 45 U/L (17-59); BLOOD UREA NITROGEN 16 mg/dL (9-20); CALCIUM 9.5 mg/dl (8.6-10.4); GFR AFRICAN-AMERICAN 53; GFR NON-AFRICAN AMERICAN 43
[2018-03-06 07:07] LABS: VENOUS BLOOD GAS BASE EXCESS -1.8 mmol/L (0.0-2.0); VENOUS BLOOD GAS PCO2 42 mmHg (40-60); VENOUS BLOOD GAS PO2 22 mm/Hg (30-55); VENOUS BLOOD PH 7.36 (7.32-7.43)
[2018-03-06 07:12] LABS: BANDS 1 % (0-2); LYMPHOCYTE 6 % (20-40); MONOCYTE 2 % (0-10); NEUTROPHIL 91 % (50-75); PLATELET ESTIMATE NORMAL (NORMAL); TOTAL CELLS COUNTED 100
[2018-03-06] MEDS ORDERED: Potassium Chloride 20 mEq 100 ML ONE ×2 (07:14→11:41)
[2018-03-06 08:04] LABS: SQUAMOUS EPITHIAL < 1 /hpf (0-5); URINE BACTERIA RARE (<OCC); URINE BILIRUBIN NEGATIVE (NEGATIVE); URINE BLOOD NEGATIVE (NEGATIVE); URINE CLARITY Hazy (Clear); URINE COLOR Amber (YELLOW); URINE GLUCOSE (UA) NORMAL (Normal); URINE LEUKOCYTE ESTERASE TRACE Leu/uL (Negative); URINE PROTEIN 2+ mg/dL (NEGATIVE)
[2018-03-06 08:18] LABS: BARBITURATES, UR NEGATIVE (NEGATIVE); BENZODIAZEPINES, UR NEGATIVE (NEGATIVE); PHENCYCLIDINE, UR NEGATIVE (NEGATIVE)
[2018-03-06 08:39] LABS: OPIATES, UR POSITIVE (NEGATIVE)
--- NOTE | 2018-03-06 09:54 | RAD ---
Date of service: 03/06/2018 PROCEDURE: CHEST RADIOGRAPH, 1 VIEW HISTORY: Overdosed COMPARISON: None available. FINDINGS: LUNGS: No acute pulmonary disease appreciated bilaterally. PLEURA: No pneumothorax or pleural fluid seen. CARDIOVASCULAR: Normal. OSSEOUS STRUCTURES: No significant abnormalities. VISUALIZED UPPER ABDOMEN: Normal. OTHER FINDINGS: None. IMPRESSION: No acute cardiopulmonary disease appreciated.
[2018-03-06] MEDS ORDERED: Sodium Chloride 0.9% 2,000 ML ONE (11:41)
[2018-03-06] MEDS: Sodium Chloride 0.9% 1,000 ML IV SCH ×3 (11:50→21:30)
--- NOTE | 2018-03-06 14:04 | PCM.PSYCH ---
Initial Psychiatric Evaluation - Initial Psychiatric Evaluation Type of Admission: Voluntary Legal Status: Capacity Chief Complaint (in patient's own words): "I am withdrawing" History of Present Illness and Precipitating Events: Patient seen. Patient is a 23 year old unemployed male who lives with his father. He is known from a recent detox admission Consult is requested bc he took more meds than he was supposed to and is withdrawing from heroin The patient came to [facility] ED because he took 6 pills of psychiatric medication (Trazodone and Vistaril) and then used 2 bags of heroin. He is drowsy. He normally uses 5-10 bags heroin he says. He also uses cocaine but denies others. He smokes 10 cigarettes a day. The patient states that his plan is to go to rehab from here. The patient was admitted to the detox unit at [facility] in February. He states that he relapsed days after discharge. He denies aud. or visual hallucinations, SI/HI, paranoia. He adamantly denies it was a suicide attempt and contracts for safety. He is future oriented but somewhat depressed and anxious. Past medical Hx: none Social hx: unemployed, lives with his father Family psych hx: denies Current Medications: Active Medications Generic Name Dose Route Start Last Admin Trade Name Freq PRN Reason Stop Dose Admin Sodium Chloride 1,000 mls @ 200 mls/hr 03/06/18 11:30 03/06/18 11:50 Sodium Chloride 0.9% IV 200 mls/hr .Q5H MAYELA Administration Past Psychiatric History - Past Psychiatric History Previous Treatment History: None Pertinent Medical Hx (Current Medical&Sleep Prob, Allergies): Allergies Allergy/AdvReac Type Severity Reaction Status Date / Time No Known Allergies Allergy Verified 02/25/18 15:39 cloNIDine [Catapres] 0.1 mg PO Q8 PRN #20 tab 02/27/18 traZODone [Desyrel] 50 mg PO HS PRN #30 tab 02/27/18 Review of Systems - Psychiatric Psychiatric: Abnormal Sleep Pattern, Anhedonia, Anxiety, Difficulty Concentrating. absent: Hallucinations, Homicidal Ideation, Paranoia, Suicidal Ideation Mental Status Examination - Personal Presentation Personal Presentation: Looks stated age - Affect Affect: Constricted - Motor Activity Motor Activity: Calm - Reliability in Providing Information Reliability in Providing Information: Fair - Speech Speech: Organized - Mood Mood: Depressed, Anxious - Formal Thought Process Formal Thought Process: No Impairment - Cognitive Functions Orientation: Person, Place, Situation, Time Sensorium: Alert Attention/Concentration: Easily distracted Abstract Thinking: [place] Estimate of Intelligence: Below average Judgement: Intact, as evidence by: Insight regarding need for hospitalization Memory: Recent intact, as evidence by: Ability to recall events of the day, Remote impaired as evidenced by: Inability to recall sig life events - Risk Risk: Withdrawal, Diminished functioning - Strength & Assets Inventory Strength & Assets Inventory: Life experience, Cooperative - Limitations Limitations: Living alone DSM 5 DX - DSM 5 DSM 5 Diagnosis: Opioid use disorder, severe Opioid withdrawal Cocaine use disorder, moderate Tobacco use disorder Depressive d/o - unspecified - Recommended/Plan of Treatment Treatment Recommendations and Plan of Treatment: Opioid use disorder severe CBT Psychoeducation Supportive therapy, individual therapy Use [place] for abstinence Opiod withdrawal psychoeducation Methadone taper with close observation of VS Clonidine if necessary Cocaine use disorder moderate Monitor signs and symptoms Use [place] for abstinence Tobacco use disorder CBT Psychoeducation Supportive therapy, individual therapy Use [place] for abstinence Nicotine patch if needed Depression: No need for 1:1 but check frequently Meds if needed 35 min
--- NOTE | 2018-03-06 18:46 | CP.PCM.CON ---
History of Present Illness - History of Present Illness History of Present Illness: pt is seen and examined, full consult is dictated #[id number] Past Patient History - Past Medical History & Family History Past Medical History?: No - Past Social History Smoking Status: Heavy Smoker > 10 Cigarettes Daily - CARDIAC Hx Hypertension: No - PULMONARY Hx Tuberculosis: No - NEUROLOGICAL Hx Seizures: No - HEMATOLOGICAL/ONCOLOGICAL Hx Human Immunodeficiency Virus (HIV): No - MUSCULOSKELETAL/RHEUMATOLOGICAL Hx Falls: No - GENITOURINARY/GYNECOLOGICAL Hx Sexually Transmitted Disorders: No - PSYCHIATRIC Hx Anxiety: Yes Hx Depression: Yes Hx Substance Use: Yes (heroin) - SURGICAL HISTORY Hx Surgeries: No - ANESTHESIA Hx Anesthesia: No Hx Anesthesia Reactions: No Meds Allergies/Adverse Reactions: Allergies Allergy/AdvReac Type Severity Reaction Status Date / Time No Known Allergies Allergy Verified 02/25/18 15:39 - Medications Medications: Current Medications Acetaminophen (Tylenol 325mg Tab) 650 mg PO Q6 PRN PRN Reason: Pain, moderate (4-7) Last Admin: 03/06/18 16:30 Dose: 650 mg Sodium Chloride (Sodium Chloride 0.9%) 1,000 mls @ 200 mls/hr IV .Q5H MAYELA Last Admin: 03/06/18 18:15 Dose: 200 mls/hr Lorazepam (Ativan) 0.5 mg PO Q6H PRN PRN Reason: Anxiety Methadone HCl (Methadone) 5 mg PO ONCE ONE Stop: 03/06/18 21:01 Methadone HCl (Methadone) 0 mg PO Q24H MAYELA PRN Reason: Taper Stop: 03/10/18 08:59 Results - Vital Signs Recent Vital Signs: Last Vital Signs Temp 101.1 F H 03/06/18 16:30 Pulse 112 H 03/06/18 15:00 Resp 20 03/06/18 15:00 BP 110/52 L 03/06/18 15:00 Pulse Ox 99 03/06/18 15:00 - Labs Result Diagrams: 03/06/18 06:17 03/06/18 19:30 Labs: Laboratory Results - last 24 hr 03/06/18 03/06/18 03/06/18 06:17 06:17 06:17 WBC 11.5 H D RBC 4.70 Hgb 15.2 Hct 43.9 MCV 93.2 MCH 32.3 H MCHC 34.7 RDW 13.0 Plt Count 200 MPV 9.3 Neut % (Auto) 95.1 H Lymph % (Auto) 4.0 L [place] % (Auto) 0.6 Eos % (Auto) 0.1 Baso % (Auto) 0.2 Neut # (Auto) 11.0 H Lymph # (Auto) 0.5 L [place] # (Auto) 0.1 Eos # (Auto) 0.0 Baso # (Auto) 0.0 Neutrophils % (Manual) 91 H Band Neutrophils % 1 Lymphocytes % (Manual) 6 L Monocytes % (Manual) 2 Platelet Estimate Normal pO2 VBG pH VBG pCO2 VBG HCO3 VBG Total CO2 VBG O2 Sat (Calc) VBG Base Excess VBG Potassium Glucose Lactate Sodium 146 Potassium 3.0 L Chloride 108 H Carbon Dioxide 22 Anion Gap 18 BUN 16 Creatinine 1.9 H Est GFR ( Amer) 53 Est GFR (Non-Af Amer) 43 Random Glucose 112 H Calcium 9.5 Total Bilirubin 0.9 AST 45 ALT 26 Alkaline Phosphatase 91 Total Creatine Kinase Total Protein 7.1 Albumin 4.2 Globulin 2.9 Albumin/Globulin Ratio 1.5 Venous Blood Potassium Urine Color Urine Clarity Urine pH Ur Specific [place] Urine Protein Urine Glucose (UA) Urine Ketones Urine Blood Urine Nitrate Urine Bilirubin Urine Urobilinogen Ur Leukocyte Esterase Urine WBC (Auto) Urine RBC (Auto) Ur Squamous Epith Cells Urine Bacteria Hyaline Casts Ur Random Creatinine Ur Random Sodium Ur Random Potassium Salicylates < 1.0 Urine Opiates Screen Urine Methadone Screen Acetaminophen < 10.0 L Ur Barbiturates Screen Ur Phencyclidine Scrn Ur Amphetamines Screen U Benzodiazepines Scrn U Oth Cocaine Metabols U Cannabinoids Screen Alcohol, Quantitative < 10 03/06/18 03/06/18 03/06/18 07:00 07:47 07:47 WBC RBC Hgb Hct MCV MCH MCHC RDW Plt Count MPV Neut % (Auto) Lymph % (Auto) [place] % (Auto) Eos % (Auto) Baso % (Auto) Neut # (Auto) Lymph # (Auto) [place] # (Auto) Eos # (Auto) Baso # (Auto) Neutrophils % (Manual) Band Neutrophils % Lymphocytes % (Manual) Monocytes % (Manual) Platelet Estimate pO2 22 L VBG pH 7.36 VBG pCO2 42 VBG HCO3 21.8 VBG Total CO2 25.0 VBG O2 Sat (Calc) 46.9 VBG Base Excess -1.8 L VBG Potassium 2.8 L Glucose 103 Lactate 2.8 H Sodium 144.0 Potassium Chloride 110.0 H Carbon Dioxide Anion Gap BUN Creatinine Est GFR ( Amer) Est GFR (Non-Af Amer) Random Glucose Calcium Total Bilirubin AST ALT Alkaline Phosphatase Total Creatine Kinase Total Protein Albumin Globulin Albumin/Globulin Ratio Venous Blood Potassium 2.8 L Urine Color [place] Urine Clarity Hazy Urine pH 5.0 Ur Specific [place] 1.025 Urine Protein 2+ H Urine Glucose (UA) Normal Urine Ketones Negative Urine Blood Negative Urine Nitrate Negative Urine Bilirubin Negative Urine Urobilinogen 2.0 Ur Leukocyte Esterase Trace Urine WBC (Auto) 5 Urine RBC (Auto) 2 Ur Squamous Epith Cells < 1 Urine Bacteria Rare Hyaline Casts 11-20 H Ur Random Creatinine Ur Random Sodium Ur Random Potassium Salicylates Urine Opiates Screen Positive H Urine Methadone Screen Negative Acetaminophen Ur Barbiturates Screen Negative Ur Phencyclidine Scrn Negative Ur Amphetamines Screen Negative U Benzodiazepines Scrn Negative U Oth Cocaine Metabols Positive H U Cannabinoids Screen Negative Alcohol, Quantitative 03/06/18 03/06/18 03/06/18 12:51 13:36 14:18 WBC RBC Hgb Hct MCV MCH MCHC RDW Plt Count MPV Neut % (Auto) Lymph % (Auto) [place] % (Auto) Eos % (Auto) Baso % (Auto) Neut # (Auto) Lymph # (Auto) [place] # (Auto) Eos # (Auto) Baso # (Auto) Neutrophils % (Manual) Band Neutrophils % Lymphocytes % (Manual) Monocytes % (Manual) Platelet Estimate pO2 VBG pH VBG pCO2 VBG HCO3 VBG Total CO2 VBG O2 Sat (Calc) VBG Base Excess VBG Potassium Glucose Lactate Sodium Potassium Chloride Carbon Dioxide Anion Gap BUN Creatinine Est GFR ( Amer) Est GFR (Non-Af Amer) Random Glucose Calcium Total Bilirubin AST ALT Alkaline Phosphatase Total Creatine Kinase 73 Total Protein Albumin Globulin Albumin/Globulin Ratio Venous Blood Potassium Urine Color Urine Clarity Urine pH Ur Specific [place] Urine Protein Urine Glucose (UA) Urine Ketones Urine Blood Urine Nitrate Urine Bilirubin Urine Urobilinogen Ur Leukocyte Esterase Urine WBC (Auto) Urine RBC (Auto) Ur Squamous Epith Cells Urine Bacteria Hyaline Casts Ur Random Creatinine 161.0 Ur Random Sodium Cancelled 22 Ur Random Potassium Cancelled 52.3 Salicylates Urine Opiates Screen Urine Methadone Screen Acetaminophen Ur Barbiturates Screen Ur Phencyclidine Scrn Ur Amphetamines Screen U Benzodiazepines Scrn U Oth Cocaine Metabols U Cannabinoids Screen Alcohol, Quantitative
[2018-03-06 20:48] LABS: BLOOD UREA NITROGEN 15 mg/dL (9-20); CALCIUM 8.6 mg/dl (8.6-10.4); GFR AFRICAN-AMERICAN > 60; GFR NON-AFRICAN AMERICAN > 60
--- NOTE | 2018-03-06 23:13 | CP.PCM.HP ---
History of Present Illness - History of Present Illness History of Present Illness: CC: Drug overdose HPI: 23 y/o malewith history of heroine dependence who was recntly discharged from [facility] when he was prescribed antidepressants including trazadone and seraquil, pt didnot do well and continue to have withdrwal symptoms. 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 Patient states he took 2 Trazadone and Visteril at 03:00 and did heroin. Patient states he awoke and felt lightheaded while trying to walk to the bathroom then experienced syncope. Patient reports persistent symptoms. Denies intentional overdosing, other drug use, headache, or chest pain. His B.P was low, he was given fluids, he is anxious now and has flat affect Present on Admission - Present on Admission Any Indicators Present on Admission: Yes Review of Systems - Review of Systems Systems not reviewed;Unavailable: Acuity of Condition - Constitutional Constitutional: Fatigue, Lethargy, Malaise, Weakness - EENT Eyes: absent: As Per HPI, Blind Spots, Blurred Vision, Change in Vision, Decreased Night Vision, Diplopia, Discharge, Dry Eye, Exophthalmos, Floaters, Irritation, Itchy Eyes, Loss of Peripheral Vision, Pain, Photophobia, Requires Corrective Lenses, Sees Flashes, Spots in Vision, Tunnel Vision, Other Visual Disturbances, Loss of Vision, Other Ears: absent: As Per HPI, Decreased Hearing, Ear Discharge, Ear Pain, Tinnitus, Abnormal Hearing, Disequilibrium, Dizziness, Other Nose/Mouth/Throat: absent: As Per HPI, Epistaxis, Nasal Congestion, Nasal Discharge, Nasal Obstruction, Nasal Trauma, Nose Pain, Post Nasal Drip, Sinus Pain, Sinus Pressure, Bleeding Gums, Change in Voice, Dental Pain, Dry Mouth, Dysphagia, Halitosis, Hoarsness, Lip Swelling, Mouth Lesions, Mouth Pain, Odynophagia, Sore Throat, Throat Swelling, Tongue Swelling, Facial Pain, Neck Pain, Neck Mass, Other - Respiratory Respiratory: Dyspnea - Gastrointestinal Gastrointestinal: Abdominal Pain - Genitourinary Genitourinary: absent: As Per HPI, Change in Urinary Stream, Difficulty Urinating, Dysuria, Flank Pain, Hematuria, Pyuria, Nocturia, Urinary Incontinence, Urinary Frequency, Urinary Hesitance, Urinary Urgency, Voiding Freq/Small Amts, Freq UTI, Hx Renal/Bladder Calculi, Hx /Renal Surgery, Bladder Distension, Other - Neurological Neurological: Dizziness - Psychiatric Psychiatric: Anxiety, Confusion, Depression Past Patient History - Past Medical History & Family History Past Medical History?: No - Past Social History Smoking Status: Heavy Smoker > 10 Cigarettes Daily - CARDIAC Hx Hypertension: No - PULMONARY Hx Tuberculosis: No - NEUROLOGICAL Hx Seizures: No - HEMATOLOGICAL/ONCOLOGICAL Hx Human Immunodeficiency Virus (HIV): No - MUSCULOSKELETAL/RHEUMATOLOGICAL Hx Falls: No - GENITOURINARY/GYNECOLOGICAL Hx Sexually Transmitted Disorders: No - PSYCHIATRIC Hx Anxiety: Yes Hx Depression: Yes Hx Substance Use: Yes (heroin) - SURGICAL HISTORY Hx Surgeries: No - ANESTHESIA Hx Anesthesia: No Hx Anesthesia Reactions: No Meds Allergies/Adverse Reactions: Allergies Allergy/AdvReac Type Severity Reaction Status Date / Time No Known Allergies Allergy Verified 02/25/18 15:39 Physical Exam - Constitutional Appears: No Acute Distress - Eye Exam Eye Exam: EOMI, Normal appearance, PERRL Pupil Exam: NORMAL ACCOMODATION, PERRL - ENT Exam ENT Exam: Mucous Membranes Moist, Normal Exam - Respiratory Exam Respiratory Exam: Clear to Auscultation Bilateral, NORMAL BREATHING PATTERN - Cardiovascular Exam Cardiovascular Exam: REGULAR RHYTHM - GI/Abdominal Exam GI & Abdominal Exam: Normal Bowel Sounds, Soft. absent: Tenderness - Neurological Exam Neurological exam: Alert, CN II-XII Intact - Psychiatric Exam Psychiatric exam: Anxious, Flat Affect - Skin Skin Exam: Dry, Intact, Normal Color, Warm Results - Vital Signs Recent Vital Signs: Last Vital Signs Temp 98.1 F 03/06/18 22:45 Pulse 81 03/06/18 22:45 Resp 20 03/06/18 22:45 BP 102/63 03/06/18 22:45 Pulse Ox 98 03/06/18 22:45 - Labs Result Diagrams: 03/06/18 06:17 03/06/18 19:30 Labs: Laboratory Results - last 24 hr 03/06/18 03/06/18 03/06/18 06:17 06:17 06:17 WBC 11.5 H D RBC 4.70 Hgb 15.2 Hct 43.9 MCV 93.2 MCH 32.3 H MCHC 34.7 RDW 13.0 Plt Count 200 MPV 9.3 Neut % (Auto) 95.1 H Lymph % (Auto) 4.0 L [place] % (Auto) 0.6 Eos % (Auto) 0.1 Baso % (Auto) 0.2 Neut # (Auto) 11.0 H Lymph # (Auto) 0.5 L [place] # (Auto) 0.1 Eos # (Auto) 0.0 Baso # (Auto) 0.0 Neutrophils % (Manual) 91 H Band Neutrophils % 1 Lymphocytes % (Manual) 6 L Monocytes % (Manual) 2 Platelet Estimate Normal pO2 VBG pH VBG pCO2 VBG HCO3 VBG Total CO2 VBG O2 Sat (Calc) VBG Base Excess VBG Potassium Glucose Lactate Sodium 146 Potassium 3.0 L Chloride 108 H Carbon Dioxide 22 Anion Gap 18 BUN 16 Creatinine 1.9 H Est GFR ( Amer) 53 Est GFR (Non-Af Amer) 43 Random Glucose 112 H Calcium 9.5 Total Bilirubin 0.9 AST 45 ALT 26 Alkaline Phosphatase 91 Total Creatine Kinase Total Protein 7.1 Albumin 4.2 Globulin 2.9 Albumin/Globulin Ratio 1.5 Venous Blood Potassium Urine Color Urine Clarity Urine pH Ur Specific [place] Urine Protein Urine Glucose (UA) Urine Ketones Urine Blood Urine Nitrate Urine Bilirubin Urine Urobilinogen Ur Leukocyte Esterase Urine WBC (Auto) Urine RBC (Auto) Ur Squamous Epith Cells Urine Bacteria Hyaline Casts Ur Random Creatinine Ur Random Sodium Ur Random Potassium Salicylates < 1.0 Urine Opiates Screen Urine Methadone Screen Acetaminophen < 10.0 L Ur Barbiturates Screen Ur Phencyclidine Scrn Ur Amphetamines Screen U Benzodiazepines Scrn U Oth Cocaine Metabols U Cannabinoids Screen Alcohol, Quantitative < 10 03/06/18 03/06/18 03/06/18 07:00 07:47 07:47 WBC RBC Hgb Hct MCV MCH MCHC RDW Plt Count MPV Neut % (Auto) Lymph % (Auto) [place] % (Auto) Eos % (Auto) Baso % (Auto) Neut # (Auto) Lymph # (Auto) [place] # (Auto) Eos # (Auto) Baso # (Auto) Neutrophils % (Manual) Band Neutrophils % Lymphocytes % (Manual) Monocytes % (Manual) Platelet Estimate pO2 22 L VBG pH 7.36 VBG pCO2 42 VBG HCO3 21.8 VBG Total CO2 25.0 VBG O2 Sat (Calc) 46.9 VBG Base Excess -1.8 L VBG Potassium 2.8 L Glucose 103 Lactate 2.8 H Sodium 144.0 Potassium Chloride 110.0 H Carbon Dioxide Anion Gap BUN Creatinine Est GFR ( Amer) Est GFR (Non-Af Amer) Random Glucose Calcium Total Bilirubin AST ALT Alkaline Phosphatase Total Creatine Kinase Total Protein Albumin Globulin Albumin/Globulin Ratio Venous Blood Potassium 2.8 L Urine Color [place] Urine Clarity Hazy Urine pH 5.0 Ur Specific [place] 1.025 Urine Protein 2+ H Urine Glucose (UA) Normal Urine Ketones Negative Urine Blood Negative Urine Nitrate Negative Urine Bilirubin Negative Urine Urobilinogen 2.0 Ur Leukocyte Esterase Trace Urine WBC (Auto) 5 Urine RBC (Auto) 2 Ur Squamous Epith Cells < 1 Urine Bacteria Rare Hyaline Casts 11-20 H Ur Random Creatinine Ur Random Sodium Ur Random Potassium Salicylates Urine Opiates Screen Positive H Urine Methadone Screen Negative Acetaminophen Ur Barbiturates Screen Negative Ur Phencyclidine Scrn Negative Ur Amphetamines Screen Negative U Benzodiazepines Scrn Negative U Oth Cocaine Metabols Positive H U Cannabinoids Screen Negative Alcohol, Quantitative 03/06/18 03/06/18 03/06/18 12:51 13:36 14:18 WBC RBC Hgb Hct MCV MCH MCHC RDW Plt Count MPV Neut % (Auto) Lymph % (Auto) [place] % (Auto) Eos % (Auto) Baso % (Auto) Neut # (Auto) Lymph # (Auto) [place] # (Auto) Eos # (Auto) Baso # (Auto) Neutrophils % (Manual) Band Neutrophils % Lymphocytes % (Manual) Monocytes % (Manual) Platelet Estimate pO2 VBG pH VBG pCO2 VBG HCO3 VBG Total CO2 VBG O2 Sat (Calc) VBG Base Excess VBG Potassium Glucose Lactate Sodium Potassium Chloride Carbon Dioxide Anion Gap BUN Creatinine Est GFR ( Amer) Est GFR (Non-Af Amer) Random Glucose Calcium Total Bilirubin AST ALT Alkaline Phosphatase Total Creatine Kinase 73 Total Protein Albumin Globulin Albumin/Globulin Ratio Venous Blood Potassium Urine Color Urine Clarity Urine pH Ur Specific [place] Urine Protein Urine Glucose (UA) Urine Ketones Urine Blood Urine Nitrate Urine Bilirubin Urine Urobilinogen Ur Leukocyte Esterase Urine WBC (Auto) Urine RBC (Auto) Ur Squamous Epith Cells Urine Bacteria Hyaline Casts Ur Random Creatinine 161.0 Ur Random Sodium Cancelled 22 Ur Random Potassium Cancelled 52.3 Salicylates Urine Opiates Screen Urine Methadone Screen Acetaminophen Ur Barbiturates Screen Ur Phencyclidine Scrn Ur Amphetamines Screen U Benzodiazepines Scrn U Oth Cocaine Metabols U Cannabinoids Screen Alcohol, Quantitative 03/06/18 19:30 WBC RBC Hgb Hct MCV MCH MCHC RDW Plt Count MPV Neut % (Auto) Lymph % (Auto) [place] % (Auto) Eos % (Auto) Baso % (Auto) Neut # (Auto) Lymph # (Auto) [place] # (Auto) Eos # (Auto) Baso # (Auto) Neutrophils % (Manual) Band Neutrophils % Lymphocytes % (Manual) Monocytes % (Manual) Platelet Estimate pO2 VBG pH VBG pCO2 VBG HCO3 VBG Total CO2 VBG O2 Sat (Calc) VBG Base Excess VBG Potassium Glucose Lactate Sodium 143 Potassium 4.1 Chloride 112 H Carbon Dioxide 21 L Anion Gap 13 BUN 15 Creatinine 1.3 Est GFR ( Amer) > 60 Est GFR (Non-Af Amer) > 60 Random Glucose 82 Calcium 8.6 Total Bilirubin AST ALT Alkaline Phosphatase Total Creatine Kinase Total Protein Albumin Globulin Albumin/Globulin Ratio Venous Blood Potassium Urine Color Urine Clarity Urine pH Ur Specific [place] Urine Protein Urine Glucose (UA) Urine Ketones Urine Blood Urine Nitrate Urine Bilirubin Urine Urobilinogen Ur Leukocyte Esterase Urine WBC (Auto) Urine RBC (Auto) Ur Squamous Epith Cells Urine Bacteria Hyaline Casts Ur Random Creatinine Ur Random Sodium Ur Random Potassium Salicylates Urine Opiates Screen Urine Methadone Screen Acetaminophen Ur Barbiturates Screen Ur Phencyclidine Scrn Ur Amphetamines Screen U Benzodiazepines Scrn U Oth Cocaine Metabols U Cannabinoids Screen Alcohol, Quantitative Assessment & Plan (1) Drug abuse Status: Acute Comment: Iv fluids ,psyc consult, one to one watch (2) Hypotension Status: Acute (3) Opioid use disorder, severe, dependence Status: Acute
[2018-03-07] MEDS: Sodium Chloride 0.9% 1,000 ML IV SCH ×6 (01:07→22:30)
[2018-03-07 07:09] LABS: BLOOD UREA NITROGEN 13 mg/dL (9-20); CALCIUM 8.9 mg/dl (8.6-10.4); GFR AFRICAN-AMERICAN > 60; GFR NON-AFRICAN AMERICAN > 60
--- NOTE | 2018-03-07 08:49 | CON ---
DATE: 03/06/2018 LOCATION: The patient is located in room 658, bed A. REQUESTED BY: Baldo Perla MD REASON FOR CONSULTATION: Increased BUN and creatinine and for further evaluation. HISTORY OF PRESENT ILLNESS: Mr. Douglas____ is a 23-year-old male who was presented to the emergency room with a chief complaint of syncope and lightheadedness prior to the admission. PHYSICAL EXAMINATION: As follows, VITAL SIGNS: Blood pressure 102/63, pulse 81, respirations 20, temperature 98.1, saturation 98%, T-max is 101.1, height 5 feet 9 inches, weight is 170 pounds. GENERAL: Mr. Douglas____ is a 23-year-old male with multiple tattoos in both arms, well built, well nourished, not in distress, drowsy, and arousable. HEENT: Pupils are normally reactive to light and accommodation. Conjunctivae pink. Sclerae anicteric. Tongue is moist. Trachea is midline. LUNGS: Symmetric on both sides. Bilateral breath sounds present. Clear to auscultation. CARDIOVASCULAR SYSTEM: [place] at the fifth intercostal space in the midclavicular line, 0.5 inch medial to mid clavicular line. S1, S2 audible. No murmur or gallop. ABDOMEN: Normal in appearance. Soft and tympanic. No guarding. No hepatosplenomegaly. 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 EXTREMITIES: No cyanosis. No clubbing. No edema. LABORATORY DATA: As follows: As of 03/06/2018, WBC 11.5, hemoglobin 15.2, hematocrit is 43.9, platelets 200. Neutrophils 91, bands 1, lymphs 6, monos 2. VBG, pH 7.36, pO2 is 22, pCO2 of 42, bicarb is 21.8. Sodium 146, potassium 3, chloride 108, CO2 of 22, BUN 16, creatinine 1.9, glucose 112, calcium 9.5. Total bili 0.9, AST 45, ALT 26, alkaline phosphatase 91, total protein 7.1, albumin is 4.2. Urinalysis, grabiel color, hazy, pH 5, specific gravity 1.025, protein 2+, glucose normal, ketones negative, blood negative, nitrites negative, bilirubin negative, urobilinogen 2, leukocyte esterase trace, wbc 5, rbc 2, hyaline cast 11-20, bacteria rare. Urine tox screen, salicylates less than 1 and opiates positive, methadone negative, Tylenol less than 10, cocaine is also positive, cannabinoids negative, alcohol level less than 10, urine creatinine 161, urine sodium is 22, urine potassium is 52.3. IMPRESSION: In summary, the patient is a 23-year-old young male with a history of drug abuse, heroin abuse and cocaine abuse, anxiety, and depression, was admitted with feeling dizzy, lightheaded after taking trazodone and also intravenous heroin with increased BUN and creatinine and low potassium. 1. Renal failure, most likely secondary to acute renal failure secondary to intravascular depletion, rule out rhabdomyolysis. 2. Depression. 3. Anxiety. 4. Intravenous drug abuse. PLAN: Continue IV fluids. Consider psych evaluation for drug detox. Continue IV fluids, normal saline 200 mL/hour and repeat BMP and check CPK levels also. We will follow with you. Thank you for allowing me to participate in your patient's care. Nataliia Martin MD
--- NOTE | 2018-03-07 11:36 | CARD ---
APPROVED REPORT Date of service: 03/06/2018 EKG Measurement Heart [id number] <Conclusion> Sinus tachycardia Otherwise normal ECG
[2018-03-07 14:01] LABS: HEMOGLOBIN 13.3 g/dL (12.0-18.0); MEAN CELL VOLUME 93.2 fL (80.0-94.0); MEAN CORPUSCULAR HEMOGLOBIN 32.4 pg (27.0-31.0); MEAN CORPUSCULAR HGB CONC 34.8 g/dL (33.0-37.0); MEAN PLATELET VOLUME 9.7 fL (7.2-11.7); RBC 4.1 Mil/uL (4.40-5.90); RED CELL DISTRIBUTION WIDTH 13.2 % (11.5-14.5)
--- NOTE | 2018-03-07 14:20 | PCM.PYCHPN ---
Psychiatric Progress Note - Psychiatric Progress Note Patient seen today, length of contact: 16 min Patient Chief Complaint: "I am not Ok, I have pain" Problems Identified/Issues Discussed: The pt is seen, chart reviewed, case discussed with staff. Support and psychoeducation given, SC used briefly No new symptoms reported, improving slowly and needs more time An extra 5 mg added b/c of ongoing withdrawal sxs No SEs from medications, risks discussed. After care discussed Medication Change: Yes (detox changes daily) Medical Record Reviewed: Yes Mental Status Examination - Cognitive Function Orientation: Person, Place, Situation, Time Memory: Intact Attention: Poor Concentration: Poor Association: WNL Fund of Knowledge: WNL - Mood Mood: Depressed, Anxious - Affect Affect: Constricted - Speech Speech: Appropriate - Formal Thought Process Formal Thought Process: No Impairment - Suicidal Ideation Suicidal Ideation: No - Homicidal Ideation Homicidal Ideation: No Goal/Treatment Plan - Goal/Treatment Plan Need for Continued Stay: Severe functional impairment, Other (medical) Progress Toward Problem(s) and Goals/Treatment Plan: Opioid use disorder severe CBT Psychoeducation Supportive therapy Use SC for abstinence Opiod withdrawal psychoeducation Methadone taper with close observation of VS Clonidine if necessary Depression: No need for 1:1 but check frequently Low dose seroquel
--- NOTE | 2018-03-07 15:34 | CP.PCM.PN ---
Subjective - Date & Time of Evaluation Date of Evaluation: 03/07/18 Time of Evaluation: 15:34 - Subjective Subjective: pt is seen and examined, follow up consult is dictated #[id number] will sign off the case Objective - Vital Signs/Intake and Output Vital Signs (last 24 hours): Temp Pulse Resp BP Pulse Ox 98.6 F 89 18 105/60 97 03/07/18 07:20 03/07/18 07:20 03/07/18 07:20 03/07/18 07:20 03/07/18 07:20 Intake and Output: 03/07/18 03/07/18 06:59 18:59 Intake Total 1999 1480 Balance 1999 1480 - Medications Medications: Current Medications Acetaminophen (Tylenol 325mg Tab) 650 mg PO Q6 PRN PRN Reason: Pain, moderate (4-7) Last Admin: 03/07/18 12:06 Dose: 650 mg Sodium Chloride (Sodium Chloride 0.9%) 1,000 mls @ 200 mls/hr IV .Q5H MAYELA Last Admin: 03/07/18 11:52 Dose: 200 mls/hr Ceftriaxone Sodium 1 gm/ (Sodium Chloride) 100 mls @ 100 mls/hr IVPB Q24H MAYELA PRN Reason: Protocol Lorazepam (Ativan) 0.5 mg PO Q6H PRN PRN Reason: Anxiety Methadone HCl (Methadone) 10 mg PO Q24H MAYELA PRN Reason: Taper Stop: 03/10/18 08:59 Last Admin: 03/07/18 08:09 Dose: 10 mg Methadone HCl (Methadone) 5 mg PO ONCE ONE Stop: 03/07/18 17:01 Quetiapine Fumarate (Seroquel) 50 mg PO HS MAYELA - Labs Labs: 03/07/18 13:57 03/07/18 06:38
[2018-03-07] MEDS ORDERED: Vancomycin 1 gm/NS 200 ml 1 GM/200 ML BAG IVPB STA (15:53)
--- NOTE | 2018-03-07 23:43 | CP.PCM.PN ---
Subjective - Date & Time of Evaluation Date of Evaluation: 03/07/18 Time of Evaluation: 18:40 - Subjective Subjective: patient seen and examined has fever weak, wbc is up has been seen byt psyc too Objective - Vital Signs/Intake and Output Vital Signs (last 24 hours): Temp Pulse Resp BP Pulse Ox 98.2 F 68 20 99/52 L 98 03/07/18 15:00 03/07/18 20:47 03/07/18 15:00 03/07/18 15:00 03/07/18 15:00 Intake and Output: 03/07/18 03/08/18 18:59 06:59 Intake Total 1480 Balance 1480 - Medications Medications: Current Medications Acetaminophen (Tylenol 325mg Tab) 650 mg PO Q6 PRN PRN Reason: Pain, moderate (4-7) Last Admin: 03/07/18 12:06 Dose: 650 mg Sodium Chloride (Sodium Chloride 0.9%) 1,000 mls @ 200 mls/hr IV .Q5H MAYELA Last Admin: 03/07/18 18:20 Dose: 200 mls/hr Ceftriaxone Sodium 1 gm/ (Sodium Chloride) 100 mls @ 100 mls/hr IVPB Q24H MAYELA PRN Reason: Protocol Last Admin: 03/07/18 16:00 Dose: 100 mls/hr Lorazepam (Ativan) 0.5 mg PO Q6H PRN PRN Reason: Anxiety Methadone HCl (Methadone) 10 mg PO Q24H MAYELA PRN Reason: Taper Stop: 03/10/18 08:59 Last Admin: 03/07/18 08:09 Dose: 10 mg Quetiapine Fumarate (Seroquel) 50 mg PO [facility] Last Admin: 03/07/18 22:29 Dose: 50 mg - Labs Labs: 03/07/18 13:57 03/07/18 06:38 - Constitutional Appears: No Acute Distress, Chronically Ill - Head Exam Head Exam: ATRAUMATIC, NORMAL INSPECTION, NORMOCEPHALIC - Eye Exam Eye Exam: EOMI, Normal appearance, PERRL Pupil Exam: NORMAL ACCOMODATION, PERRL - ENT Exam ENT Exam: Mucous Membranes Moist, Normal Exam - Cardiovascular Exam Cardiovascular Exam: REGULAR RHYTHM, +S1, +S2. absent: Murmur - GI/Abdominal Exam GI & Abdominal Exam: Soft, Normal Bowel Sounds. absent: Tenderness - Rectal Exam Rectal Exam: Deferred Assessment and Plan (1) Drug abuse Status: Acute (2) Hypotension Status: Acute (3) Opioid use disorder, severe, dependence Status: Acute (4) Fever Status: Acute
[2018-03-08] MEDS: Sodium Chloride 0.9% 1,000 ML IV SCH ×6 (03:15→23:30)
[2018-03-08 07:53] LABS: BASO # 0.1 K/uL (0.0-0.2); BASO % 0.4 % (0.0-2.0); EOS # 0.5 K/uL (0.0-0.7); EOS % 3.2 % (0.0-4.0); HEMOGLOBIN 13.8 g/dL (12.0-18.0); LYMPH # 2.5 K/uL (1.0-4.3); LYMPH % 14.7 % (20.0-40.0); MEAN CELL VOLUME 92.8 fL (80.0-94.0); MEAN CORPUSCULAR HEMOGLOBIN 32.5 pg (27.0-31.0); MEAN PLATELET VOLUME 9.5 fL (7.2-11.7); MONO # 1.1 K/uL (0.0-0.8); MONO % 6.6 % (0.0-10.0); NEUT % 75.1 % (50.0-75.0); RBC 4.26 Mil/uL (4.40-5.90); RED CELL DISTRIBUTION WIDTH 13.1 % (11.5-14.5); WHITE BLOOD COUNT 17.3 K/uL (4.8-10.8)
--- NOTE | 2018-03-08 09:43 | PN ---
DATE: 03/07/2018 FOLLOWUP RENAL CONSULTATION LOCATION: The patient is located room 658, bed A. REQUESTED BY: Baldo Perla MD REASON FOR FOLLOWUP: Acute renal failure and IVDA. SUBJECTIVE: Mr. Lee is a 22-year-old young male with a history of anxiety, depression, and heroin abuse, on IVDA for the last three to four months as per the patient, was admitted with feeling dizzy, lightheaded, and decreased p.o. intake and found to have acute renal failure on admission and started on IV fluids at 200 mL per hour. The patient is feeling much better, not in acute distress. The patient was also found to have a fever and elevated white count, started on IV antibiotic Rocephin 1 g daily. The patient is also started on methadone 100 mg p.o. daily. The patient is not in distress, complains of generalized body pains. PHYSICAL EXAMINATION: VITAL SIGNS: As follows: Blood pressure this morning 105/60, pulse 89, respirations 18, temperature 98.6, saturation 97%. Height 5 feet 9 inches. Weight is 170 pounds. GENERAL: Mr. Lee is a 22-year-old young male, well built, well nourished, not in distress. HEENT: Pupils are normal and reactive to light and accommodation. Conjunctivae are pink. Sclerae are anicteric. Tongue is moist. Trachea is midline. LUNGS: Symmetry on both sides. Bilateral breath sounds present. Clear to auscultation. CVS: [place] at the fifth intercostal space, midclavicular line. S1, S2 audible. No murmur or gallop. ABDOMEN: Normal in appearance, soft, tympanic. No guarding. No rigidity. No hepatosplenomegaly. 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 Nonfocal neuro examination. Cranial nerves II-XII grossly intact. Sensory and motor system is within normal limits. EXTREMITIES: No cyanosis, no clubbing, no edema. LABORATORY DATA: Includes as follows as of 03/05/2018: Blood culture x2 negative on day-1 and urine culture is negative. His laboratory data includes as follows as of 03/07/2018: WBC 22, hemoglobin 13.3, hematocrit is 38.2, platelets 138. CPK level is . Other laboratory data: Sodium 144, potassium 3.8, chloride 112, CO2 of 23, BUN 13, creatinine 1.1, glucose 84, calcium 8.9. Lactic acid is 1.1. ASSESSMENT AND PLAN: In summary, Mr. Lee is a 22-year-old young male with anxiety, depression with intravenous drug abuse and urine toxicology screen is positive for opiates and cocaine, was admitted with weakness, dizziness, and decreased p.o. intake and found to have acute renal failure and also urine toxicology screen positive for opiates and cocaine with elevated white blood cell count and status post fever of 101.1. 1. Acute renal failure most likely secondary to intravascular depletion secondary to decreased p.o. intake and secondary to intake of intravenous drugs and intravenous heroin. 2. Intravenous drug abuse. Started on methadone. 3. Status post fever, rule out sepsis. Consider echocardiogram to rule out endocarditis. Follow up complete blood cell count. Follow up blood cultures. We will follow with you. Thank you for allowing me to participate in your patient's care. We will follow up as needed. We will sign off the case at this time, and discussed with nurse practitioner in rounds. Nataliia Martin MD
--- NOTE | 2018-03-08 14:14 | PCM.PYCHPN ---
Psychiatric Progress Note - Psychiatric Progress Note Patient seen today, length of contact: 15 min Patient Chief Complaint: "A little better today" Problems Identified/Issues Discussed: The pt is seen, chart reviewed, case discussed with staff. The pt is compliant with medications and reports no side-effects. Symptoms are improving but needs more time to stabilize. He got an extra 5 mg yesterday, so yesterday total was 15 mg and today 5 mg, so he will get another 5 tomorrow and his detox will END tomorrow am with 5 mg He understood and agreed. Support given, psycho-education provided. After care discussed. Medication Change: Yes (detox changes daily) Medical Record Reviewed: Yes Mental Status Examination - Cognitive Function Orientation: Person, Place, Situation, Time Memory: Intact Attention: Poor Concentration: Poor Association: WNL Fund of Knowledge: WNL - Mood Mood: Depressed, Anxious - Affect Affect: Constricted - Speech Speech: Appropriate - Formal Thought Process Formal Thought Process: No Impairment - Suicidal Ideation Suicidal Ideation: No - Homicidal Ideation Homicidal Ideation: No Goal/Treatment Plan - Goal/Treatment Plan Need for Continued Stay: Other (medical) Progress Toward Problem(s) and Goals/Treatment Plan: Opioid use disorder severe CBT Psychoeducation Supportive therapy Use [place] for abstinence Opiod withdrawal psychoeducation Methadone taper with close observation of VS Clonidine if necessary Depression: No need for 1:1 but check frequently Low dose seroquel Psych will sign off Please refer to [facility] or Methadone program
[2018-03-09] MEDS: Sodium Chloride 0.9% 1,000 ML IV SCH (02:42)
[2018-03-09 07:17] LABS: BASO # 0.1 K/uL (0.0-0.2); BASO % 0.7 % (0.0-2.0); EOS # 0.5 K/uL (0.0-0.7); EOS % 4.6 % (0.0-4.0); HEMOGLOBIN 14.3 g/dL (12.0-18.0); LYMPH # 3.1 K/uL (1.0-4.3); LYMPH % 31.2 % (20.0-40.0); MEAN CELL VOLUME 91.5 fL (80.0-94.0); MEAN CORPUSCULAR HEMOGLOBIN 32.5 pg (27.0-31.0); MEAN CORPUSCULAR HGB CONC 35.6 g/dL (33.0-37.0); MEAN PLATELET VOLUME 9.7 fL (7.2-11.7); MONO # 0.7 K/uL (0.0-0.8); MONO % 7.5 % (0.0-10.0); NEUT # 5.5 K/uL (1.8-7.0); NRBC % 0.1 % (0.0-2.0); RBC 4.38 Mil/uL (4.40-5.90); RED CELL DISTRIBUTION WIDTH 12.9 % (11.5-14.5); WHITE BLOOD COUNT 9.9 K/uL (4.8-10.8)
--- NOTE | 2018-03-09 15:02 | CP.PCM.PN ---
Subjective - Date & Time of Evaluation Date of Evaluation: 03/08/18 Time of Evaluation: 18:35 - Subjective Subjective: patient seen and examined Status post IVC filter placement The shortness of breath Afebrile No chest pain Continue anticoagulation Objective - Vital Signs/Intake and Output Vital Signs (last 24 hours): Temp Pulse Resp BP Pulse Ox 97.9 F 50 L 18 118/72 97 03/09/18 07:00 03/09/18 07:00 03/09/18 07:00 03/09/18 07:00 03/09/18 07:00 Intake and Output: 03/09/18 03/09/18 06:59 18:59 Intake Total 3900 Output Total 800 Balance 3100 - Medications Medications: Current Medications Acetaminophen (Tylenol 325mg Tab) 650 mg PO Q6 PRN PRN Reason: Pain, moderate (4-7) Last Admin: 03/09/18 14:56 Dose: 650 mg Ceftriaxone Sodium 1 gm/ (Sodium Chloride) 100 mls @ 100 mls/hr IVPB Q24H MAYELA PRN Reason: Protocol Last Admin: 03/09/18 14:57 Dose: 100 mls/hr Lorazepam (Ativan) 0.5 mg PO Q6H PRN PRN Reason: Anxiety Methadone HCl (Methadone) 5 mg PO Q24H MAYELA PRN Reason: Taper Stop: 03/10/18 08:59 Last Admin: 03/09/18 10:05 Dose: 5 mg Quetiapine Fumarate (Seroquel) 50 mg PO HS MAYELA Last Admin: 03/08/18 21:33 Dose: 50 mg - Labs Labs: 03/09/18 06:55 03/07/18 06:38 Assessment and Plan (1) Drug abuse Status: Acute (2) Hypotension Status: Acute (3) Opioid use disorder, severe, dependence Status: Acute (4) Fever Status: Acute
--- NOTE | 2018-03-09 15:02 | CP.PCM.PN ---
Subjective - Date & Time of Evaluation Date of Evaluation: 03/09/18 Time of Evaluation: 19:35 - Subjective Subjective: patient seen and examined Objective - Vital Signs/Intake and Output Vital Signs (last 24 hours): Temp Pulse Resp BP Pulse Ox 97.9 F 50 L 18 118/72 97 03/09/18 07:00 03/09/18 07:00 03/09/18 07:00 03/09/18 07:00 03/09/18 07:00 Intake and Output: 03/09/18 03/09/18 06:59 18:59 Intake Total 3900 Output Total 800 Balance 3100 - Medications Medications: Current Medications Acetaminophen (Tylenol 325mg Tab) 650 mg PO Q6 PRN PRN Reason: Pain, moderate (4-7) Last Admin: 03/09/18 14:56 Dose: 650 mg Ceftriaxone Sodium 1 gm/ (Sodium Chloride) 100 mls @ 100 mls/hr IVPB Q24H MAYELA PRN Reason: Protocol Last Admin: 03/09/18 14:57 Dose: 100 mls/hr Lorazepam (Ativan) 0.5 mg PO Q6H PRN PRN Reason: Anxiety Methadone HCl (Methadone) 5 mg PO Q24H MAYELA PRN Reason: Taper Stop: 03/10/18 08:59 Last Admin: 03/09/18 10:05 Dose: 5 mg Quetiapine Fumarate (Seroquel) 50 mg PO HS MAYELA Last Admin: 03/08/18 21:33 Dose: 50 mg - Labs Labs: 03/09/18 06:55 03/07/18 06:38 Assessment and Plan (1) Drug abuse Status: Acute (2) Hypotension Status: Acute (3) Opioid use disorder, severe, dependence Status: Acute (4) Fever Status: Acute
[2018-03-10 16:13] VITALS: RESP 20
--- NOTE | 2018-03-10 23:20 | CP.PCM.PN ---
Subjective - Date & Time of Evaluation Date of Evaluation: 03/10/18 Time of Evaluation: 17:00 - Subjective Subjective: Pt seen and evalauted, afebrile, pt is off antibiotics, probably will transfer to sub acute rehab in [facility] [place] floor Objective - Vital Signs/Intake and Output Vital Signs (last 24 hours): Temp Pulse Resp BP Pulse Ox 98.4 F 51 L 20 107/66 98 03/10/18 15:00 03/10/18 15:00 03/10/18 15:00 03/10/18 15:00 03/10/18 15:00 Intake and Output: 03/10/18 03/11/18 18:59 06:59 Intake Total 240 Balance 240 - Medications Medications: Current Medications Acetaminophen (Tylenol 325mg Tab) 650 mg PO Q6 PRN PRN Reason: Pain, moderate (4-7) Last Admin: 03/09/18 21:27 Dose: 650 mg Lorazepam (Ativan) 0.5 mg PO Q6H PRN PRN Reason: Anxiety Quetiapine Fumarate (Seroquel) 50 mg PO HS MAYELA Last Admin: 03/10/18 21:45 Dose: 50 mg - Labs Labs: 03/09/18 06:55 03/07/18 06:38 - Constitutional Appears: No Acute Distress - Head Exam Head Exam: ATRAUMATIC, NORMAL INSPECTION, NORMOCEPHALIC - Eye Exam Eye Exam: EOMI, Normal appearance, PERRL Pupil Exam: NORMAL ACCOMODATION, PERRL - ENT Exam ENT Exam: Mucous Membranes Moist, Normal Exam - Cardiovascular Exam Cardiovascular Exam: REGULAR RHYTHM, +S1, +S2. absent: Murmur - GI/Abdominal Exam GI & Abdominal Exam: Soft, Normal Bowel Sounds. absent: Tenderness - Rectal Exam Rectal Exam: NORMAL INSPECTION Assessment and Plan (1) Drug abuse Status: Acute (2) Hypotension Status: Acute (3) Opioid use disorder, severe, dependence Status: Acute (4) Fever Status: Acute
[2018-03-11 07:38] VITALS: BP 122/71; PULSE 54; TEMP 98.7; O2SAT 98
--- NOTE | 2018-03-11 10:24 | CP.PCM.PN ---
Subjective - Date & Time of Evaluation Date of Evaluation: 03/11/18 Time of Evaluation: 10:30 - Subjective Subjective: Patient seen today awake, alert, oriented , denies any chest pain, sob, palpitations, dizziness, head ache ,no withdrawal symptoms noted a febrile all cultures are negative so far Objective - Vital Signs/Intake and Output Vital Signs (last 24 hours): Temp Pulse Resp BP Pulse Ox 98.7 F 54 L 20 122/71 98 03/11/18 07:00 03/11/18 07:00 03/11/18 07:00 03/11/18 07:00 03/11/18 07:00 Intake and Output: 03/11/18 03/11/18 06:59 18:59 Intake Total 240 Balance 240 - Medications Medications: Current Medications Acetaminophen (Tylenol 325mg Tab) 650 mg PO Q6 PRN PRN Reason: Pain, moderate (4-7) Last Admin: 03/09/18 21:27 Dose: 650 mg Lorazepam (Ativan) 0.5 mg PO Q6H PRN PRN Reason: Anxiety Quetiapine Fumarate (Seroquel) 50 mg PO HS MAYELA Last Admin: 03/10/18 21:45 Dose: 50 mg - Labs Labs: 03/09/18 06:55 03/07/18 06:38 - Constitutional Appears: Well, No Acute Distress - Respiratory Exam Respiratory Exam: Clear to Ausculation Bilateral, NORMAL BREATHING PATTERN - Cardiovascular Exam Cardiovascular Exam: REGULAR RHYTHM, +S1, +S2 - Neurological Exam Neurological Exam: Alert, Awake, Oriented x3 Assessment and Plan - Assessment and Plan (Free Text) Assessment: A/P 23 y/o male presents to ED for complaints of syncope and lightheadedness and admitted with hypotension, hypokalemia and Drug abuse, patient received IVF and K runs and hypotension an d hyokalemia resolved Dr. simon consulted for drug abuse and started on methodone taper dose and completed Dr. Simon recommends out patient f/u with [facility] in [place] D/w Dr. Perla, cleared for discharge home today and f/u PMD and methone clinic discharge plan discussed with patient who understands and agrees with plan Patient counseled regarding abstain from drug abuse and information provided by to follow up for detox program
--- NOTE | 2018-03-12 15:31 | CP.PCM.PN ---
Subjective - Date & Time of Evaluation Date of Evaluation: 03/11/18 Time of Evaluation: 18:30 - Subjective Subjective: Patient seen today awake, alert, oriented , denies any chest pain, sob, palpitations, dizziness, head ache ,no withdrawal symptoms noted a febrile all cultures are negative so far Objective - Vital Signs/Intake and Output Vital Signs (last 24 hours): Temp Pulse Resp BP Pulse Ox 98.7 F 54 L 20 122/71 98 03/11/18 07:00 03/11/18 07:00 03/11/18 07:00 03/11/18 07:00 03/11/18 07:00 - Labs Labs: 03/09/18 06:55 03/07/18 06:38 Assessment and Plan (1) Drug abuse Status: Acute (2) Hypotension Status: Acute (3) Opioid use disorder, severe, dependence Status: Acute (4) Fever Status: Acute
--- NOTE | 2018-03-12 15:32 | CP.PCM.PN ---
Subjective - Date & Time of Evaluation Date of Evaluation: 03/12/18 Time of Evaluation: 18:30 - Subjective Subjective: Patient seen today awake, alert, oriented , denies any chest pain, sob, palpitations, dizziness, head ache ,no withdrawal symptoms noted a febrile all cultures are negative so far Objective - Vital Signs/Intake and Output Vital Signs (last 24 hours): Temp Pulse Resp BP Pulse Ox 98.7 F 54 L 20 122/71 98 03/11/18 07:00 03/11/18 07:00 03/11/18 07:00 03/11/18 07:00 03/11/18 07:00 - Labs Labs: 03/09/18 06:55 03/07/18 06:38 Assessment and Plan (1) Drug abuse Status: Acute (2) Hypotension Status: Acute (3) Opioid use disorder, severe, dependence Status: Acute (4) Fever Status: Acute
--- NOTE | 2018-03-12 15:33 | CP.PCM.DIS ---
Provider - Provider Date of Admission: 03/08/18 19:03 Attending physician: Baldo Perla MD Time Spent in preparation of Discharge (in minutes): 45 Diagnosis - Discharge Diagnosis (1) Drug abuse Status: Acute (2) Hypotension Status: Acute (3) Opioid use disorder, severe, dependence Status: Acute (4) Fever Status: Acute Hospital Course - Lab Results Lab Results: Micro Results 03/06/18 19:30 Blood Blood Culture - Final NO GROWTH AFTER 5 DAYS 03/06/18 19:30 Blood Gram Stain - Final TEST NOT PERFORMED 03/06/18 19:00 Blood Blood Culture - Final NO GROWTH AFTER 5 DAYS 03/06/18 19:00 Blood Gram Stain - Final TEST NOT PERFORMED 03/06/18 20:34 Urine,Clean Catch Urine Culture - Final No Growth (<1,000 CFU/ML) Most Recent Lab Values WBC 9.9 K/uL (4.8-10.8) 03/09/18 06:55 RBC 4.38 Mil/uL (4.40-5.90) L 03/09/18 06:55 Hgb 14.3 g/dL (12.0-18.0) 03/09/18 06:55 Hct 40.1 % (35.0-51.0) 03/09/18 06:55 MCV 91.5 fL (80.0-94.0) 03/09/18 06:55 MCH 32.5 pg (27.0-31.0) H 03/09/18 06:55 MCHC 35.6 g/dL (33.0-37.0) 03/09/18 06:55 RDW 12.9 % (11.5-14.5) 03/09/18 06:55 Plt Count 172 K/uL (130-400) 03/09/18 06:55 MPV 9.7 fL (7.2-11.7) 03/09/18 06:55 Neut % (Auto) 56.0 % (50.0-75.0) 03/09/18 06:55 Lymph % (Auto) 31.2 % (20.0-40.0) 03/09/18 06:55 [place] % (Auto) 7.5 % (0.0-10.0) 03/09/18 06:55 Eos % (Auto) 4.6 % (0.0-4.0) H 03/09/18 06:55 Baso % (Auto) 0.7 % (0.0-2.0) 03/09/18 06:55 Neut # (Auto) 5.5 K/uL (1.8-7.0) 03/09/18 06:55 Lymph # (Auto) 3.1 K/uL (1.0-4.3) 03/09/18 06:55 [place] # (Auto) 0.7 K/uL (0.0-0.8) 03/09/18 06:55 Eos # (Auto) 0.5 K/uL (0.0-0.7) 03/09/18 06:55 Baso # (Auto) 0.1 K/uL (0.0-0.2) 03/09/18 06:55 Neutrophils % (Manual) 91 % (50-75) H 03/06/18 06:17 Band Neutrophils % 1 % (0-2) 03/06/18 06:17 Lymphocytes % (Manual) 6 % (20-40) L 03/06/18 06:17 Monocytes % (Manual) 2 % (0-10) 03/06/18 06:17 Platelet Estimate Normal (NORMAL) 03/06/18 06:17 pO2 22 mm/Hg (30-55) L 03/06/18 07:00 VBG pH 7.36 (7.32-7.43) 03/06/18 07:00 VBG pCO2 42 mmHg (40-60) 03/06/18 07:00 VBG HCO3 21.8 mmol/L 03/06/18 07:00 VBG Total CO2 25.0 mmol/L (22-28) 03/06/18 07:00 VBG O2 Sat (Calc) 46.9 % (40-65) 03/06/18 07:00 VBG Base Excess -1.8 mmol/L (0.0-2.0) L 03/06/18 07:00 VBG Potassium 2.8 mmol/L (3.6-5.2) L 03/06/18 07:00 Sodium 144.0 mmol/l (132-148) 03/06/18 07:00 Chloride 110.0 mmol/L (98-107) H 03/06/18 07:00 Glucose 103 mg/dl (75-110) 03/06/18 07:00 Lactate 2.8 mmol/L (0.7-2.1) H 03/06/18 07:00 Sodium 144 mmol/L (132-148) 03/07/18 06:38 Potassium 3.8 mmol/L (3.6-5.2) 03/07/18 06:38 Chloride 112 mmol/L (98-107) H 03/07/18 06:38 Carbon Dioxide 23 mmol/L (22-30) 03/07/18 06:38 Anion Gap 13 (10-20) 03/07/18 06:38 BUN 13 mg/dL (9-20) 03/07/18 06:38 Creatinine 1.1 mg/dL (0.8-1.5) 03/07/18 06:38 Est GFR ( Amer) > 60 03/07/18 06:38 Est GFR (Non-Af Amer) > 60 03/07/18 06:38 Random Glucose 84 mg/dL (75-110) 03/07/18 06:38 Lactic Acid 1.1 mmol/L (0.7-2.1) 03/07/18 10:56 Calcium 8.9 mg/dl (8.6-10.4) 03/07/18 06:38 Total Bilirubin 0.9 mg/dL (0.2-1.3) 03/06/18 06:17 AST 45 U/L (17-59) 03/06/18 06:17 ALT 26 U/L (21-72) 03/06/18 06:17 Alkaline Phosphatase 91 U/L (38-126) 03/06/18 06:17 Total Creatine Kinase 50 U/L (55-170) L 03/07/18 13:57 Total Protein 7.1 g/dL (6.3-8.3) 03/06/18 06:17 Albumin 4.2 g/dL (3.5-5.0) 03/06/18 06:17 Globulin 2.9 gm/dL (2.2-3.9) 03/06/18 06:17 Albumin/Globulin Ratio 1.5 (1.0-2.1) 03/06/18 06:17 Venous Blood Potassium 2.8 mmol/L (3.6-5.2) L 03/06/18 07:00 Urine Color [place] (YELLOW) 03/06/18 07:47 Urine Clarity Hazy (Clear) 03/06/18 07:47 Urine pH 5.0 (5.0-8.0) 03/06/18 07:47 Ur Specific [place] 1.025 (1.003-1.030) 03/06/18 07:47 Urine Protein 2+ mg/dL (NEGATIVE) H 03/06/18 07:47 Urine Glucose (UA) Normal mg/dL (Normal) 03/06/18 07:47 Urine Ketones Negative mg/dL (NEGATIVE) 03/06/18 07:47 Urine Blood Negative (NEGATIVE) 03/06/18 07:47 Urine Nitrate Negative (NEGATIVE) 03/06/18 07:47 Urine Bilirubin Negative (NEGATIVE) 03/06/18 07:47 Urine Urobilinogen 2.0 mg/dL (0.2-1.0) 03/06/18 07:47 Ur Leukocyte Esterase Trace Chris/uL (Negative) 03/06/18 07:47 Urine WBC (Auto) 5 /hpf (0-5) 03/06/18 07:47 Urine RBC (Auto) 2 /hpf (0-3) 03/06/18 07:47 Ur Squamous Epith Cells < 1 /hpf (0-5) 03/06/18 07:47 Urine Bacteria Rare (<OCC) 03/06/18 07:47 Hyaline Casts 11-20 /lpf (0-2) H 03/06/18 07:47 Ur Random Creatinine 161.0 mg/dL 03/06/18 13:36 Ur Random Sodium 22 mmol/L 03/06/18 14:18 Ur Random Potassium 52.3 mmol/L 03/06/18 14:18 Salicylates < 1.0 mg/dL 1 03/06/18 06:17 Urine Opiates Screen Positive (NEGATIVE) H 03/06/18 07:47 Urine Methadone Screen Negative (NEGATIVE) 03/06/18 07:47 Acetaminophen < 10.0 ug/mL (10.0-30.0) L 03/06/18 06:17 Ur Barbiturates Screen Negative (NEGATIVE) 03/06/18 07:47 Ur Phencyclidine Scrn Negative (NEGATIVE) 03/06/18 07:47 Ur Amphetamines Screen Negative (NEGATIVE) 03/06/18 07:47 U Benzodiazepines Scrn Negative (NEGATIVE) 03/06/18 07:47 U Oth Cocaine Metabols Positive (NEGATIVE) H 03/06/18 07:47 U Cannabinoids Screen Negative (NEGATIVE) 03/06/18 07:47 Alcohol, Quantitative < 10 mg/dl (0-10) 03/06/18 06:17 - Hospital Course Hospital Course: Patient seen today awake, alert, oriented , denies any chest pain, sob, palpitations, dizziness, head ache ,no withdrawal symptoms noted a febrile all cultures are negative so far Discharge Exam - Head Exam Head Exam: ATRAUMATIC, NORMAL INSPECTION, NORMOCEPHALIC Discharge Plan - Follow Up Plan Condition: FAIR Disposition: HOME/ ROUTINE Instructions: Hypokalemia (DC), Syncope (Fainting) (DC), Low Blood Pressure (DC ) Additional Instructions: Please f/u with PMD in 1 week please f/u with [facility], Cricket Coach will give you all information Referrals: Baldo Perla MD [Staff Provider] -
== END 2018-03-11 11:24 | disposition home or self-care (01) | DRG 582 ==
LOC: C.ER 05:36 → C.9E 07:30 → C.6T 13:46 → OBSVTOIN 03-08 19:03
PROVIDERS: ADMIT Internal Medicine; ATTEND Internal Medicine
DX: T43.211A Poisoning by selective serotonin and norepinephrine reuptake inhibitors, accidental (unintentional), initial encounter (principal); T43.591A Poisoning by other antipsychotics and neuroleptics, accidental (unintentional), initial encounter; T40.1X1A Poisoning by heroin, accidental (unintentional), initial encounter; N17.9 Acute kidney failure, unspecified; F11.23 Opioid dependence with withdrawal; E87.6 Hypokalemia; F14.20 Cocaine dependence, uncomplicated; I95.9 Hypotension, unspecified; R55 Syncope and collapse; D72.829 Elevated white blood cell count, unspecified; F17.210 Nicotine dependence, cigarettes, uncomplicated; F32.9 Major depressive disorder, single episode, unspecified; F41.9 Anxiety disorder, unspecified; Y92.009 Unspecified place in unspecified non-institutional (private) residence as the place of occurrence of the external cause; Z79.01 Long term (current) use of anticoagulants

== ENCOUNTER 2018-07-28 21:31 | Emergency (ER) | payer MEDICAID ==
[2018-07-28 22:08] VITALS: BP 145/84; PULSE 80; RESP 16; TEMP 97.8; O2SAT 100
--- NOTE | 2018-07-28 22:13 | C.PDOC ---
History Of Present Illness 23 year old male with PMHx of back injury 7-8 years ago presents to the ED c/o right lower back pain. Patient reports that7-8 years ago he was doing physical therapy for his back, was told he had a herniated disk. Patient reports today while helping his mother move, he was lifting boxes and his right lower back started hurting. Patient denies fever, chills, nausea, vomit, diarrhea, bowel incontinence, saddle anesthesia, fall, trauma, weakness, numbness. Time Seen by Provider: 07/28/18 22:01 Chief Complaint (Nursing): Back Pain History Per: Patient History/Exam Limitations: no limitations Onset/Duration Of Symptoms: Hrs Current Symptoms Are (Timing): Still Present Quality Of Discomfort: "Pain" Previous Symptoms: Back Pain Exacerbating Factor(s): Movement Recent travel outside of the [place]: No Additional History Per: Patient Past Medical History Reviewed: Historical Data, Nursing Documentation, Vital Signs Vital Signs: Last Vital Signs Temp 97.8 F 07/28/18 21:46 Pulse 80 07/28/18 21:46 Resp 16 07/28/18 21:46 BP 145/84 07/28/18 21:46 Pulse Ox 100 07/28/18 21:46 - Medical History PMH: Anxiety, Depression Denies: Diabetes, Hepatitis, HIV, HTN, Chronic Kidney Disease, Seizures, Sexually Transmitted Disease Surgical History: No Surg Hx - [facility] Procedures DETOXIFICATION SERVICES FOR SUBSTANCE ABUSE TREATMENT (02/25/18) GROUP SEAM CLOSER FOR SUBSTANCE ABUSE TREATMENT, PSYCHOEDUCATION (02/25/18) GROUP SEAM CLOSER FOR SUBSTANCE ABUSE, COGNITIVE BEHAVIORAL (02/25/18) INDIV PSYCHOTHERAPY FOR SUBSTANCE ABUSE TREATMENT, SUPPORT (02/25/18) INDIV PSYCHOTHERAPY FOR SUBSTANCE ABUSE, COGNITIV BEHAVIORAL (02/25/18) INDIV PSYCHOTHERAPY FOR SUBSTANCE ABUSE, PSYCHOEDUCATION (02/25/18) Family History: States: Unknown Family Hx - Social History Hx Alcohol Use: Yes Hx Substance Use: Yes (heroin & coccaine) - Immunization History Hx Tetanus Toxoid Vaccination: No Hx Influenza Vaccination: No Hx Pneumococcal Vaccination: No Review Of Systems Constitutional: Negative for: Fever, Chills Eyes: Negative for: Pain ENT: Negative for: Ear Pain Cardiovascular: Negative for: Chest Pain, Palpitations Respiratory: Negative for: Cough, Shortness of Breath Gastrointestinal: Negative for: Nausea, Vomiting, Abdominal Pain Genitourinary: Negative for: Dysuria Musculoskeletal: Positive for: Back Pain Skin: Negative for: Rash Neurological: Negative for: Weakness, Numbness, Headache, Dizziness Physical Exam - Physical Exam Appears: Non-toxic, No Acute Distress Skin: Normal Color, Warm, Dry, No Rash Head: Atraumatic, Normacephalic Eye(s): bilateral: Normal Inspection Oral Mucosa: Moist Neck: Normal ROM, Supple Chest: Symmetrical Cardiovascular: Rhythm Regular Respiratory: Normal Breath Sounds, No Rales, No Rhonchi, No Wheezing, Other (moving air well) Gastrointestinal/Abdominal: Soft, No Tenderness, No Guarding, No Rebound Back: No CVA Tenderness, No Vertebral Tenderness, No Straight Leg Raising Extremity: Normal ROM, No Tenderness, No Swelling Neurological/Psych: Oriented x3, Normal Speech, Normal Cognition, Normal Motor, Normal Sensation Gait: Steady (upright) ED Course And Treatment O2 Sat by Pulse Oximetry: 100 (ON RA) Pulse Ox Interpretation: Normal Medical Decision Making Medical Decision Making: Plan: * Motrin 800 mg PO * Ultram 50 mg PO Upon examination it was seen that patient had dry blood in his plam and blood streak in his T shirt. RN was told by the patient that it was another persons blood, patient told me blood came from nose bleed. Disposition Counseled Patient/Family Regarding: Diagnosis, Need For Followup - Disposition Referrals: Darshan Childers III, MD [Staff Provider] - Disposition: HOME/ ROUTINE Disposition Time: 22:12 Condition: STABLE Additional Instructions: SIMBA SANDOVAL, thank you for letting us take care of you today. Your provider was ED Physician Dr. Garcia/MARIO Jung and you were treated for BACK PAIN. The emergency medical care you received today was directed at your acute symptoms. If you were prescribed any medication, please fill it and take as directed. It may take several days for your symptoms to resolve. Return to the Emergency Department if your symptoms worsen, do not improve, or if you have any other problems. Please contact your doctor or call one of the physicians/clinics you have been referred to that are listed on the Patient Visit Information form that is included in your discharge packet. Bring any paperwork you were given at discharge with you along with any medications you are taking to your follow up visit. Our treatment cannot replace ongoing medical care by a primary care provider outside of the emergency department. [facility]. Prescriptions: RX: Ibuprofen [Motrin Tab] 800 mg PO TID PRN #20 tab PRN Reason: Pain, Moderate (4-7) Forms: [employer] ([place]), General Discharge Instructions - Clinical Impression Clinical Impression: Low back pain - PA / LOCKER ATTENDANT / Resident Statement MD/DO has reviewed & agrees with the documentation as recorded. - Scribe Statement The provider has reviewed the documentation as recorded by the Scribe Qamar Muñoz All medical record entries made by the Scribemanuel were at my direction and personally dictated by me. I have reviewed the chart and agree that the record accurately reflects my personal performance of the history, physical exam, medical decision making, and the department course for this patient. I have also personally directed, reviewed, and agree with the discharge instructions and disposition.
== END 2018-07-28 22:55 | disposition home or self-care (01) ==
LOC: C.ER 21:31
DX: M54.5 Low back pain (principal)

== ENCOUNTER 2018-12-20 23:57 | Inpatient (IN) | payer MEDICAID ==
--- NOTE | 2018-12-21 01:03 | C.PDOC ---
History Of Present Illness 23 year old male presents to the ED c/o heroin withdrawal, intentional overdose with Motrin, Naproxen and Tylenol at 22:00. Patient took approximate 18 pills each over 1 hour. Patient states his last heroin use was one day ago. Patient also c/o suicidal ideation, leg shaking and SOB. Patient denies other drug use/overdose. CO HEROIN WITHDRAWAL, INTENTIONAL OVERDOSE MOTRIN, NAPROSYN AND TYLENOL @ 2200. PS TOOK APPROX 18 PILLS EACH OVER 1 HR. LAST HEROIN USE 1 DAY AGO. CO SUICIDAL IDEATION, MYALGIA, LEG SHAKING, SOB. DENIES OTHER DRUG USE/OVERDOSE EXAM NONTOXIC HEENT PERRLA CV RRR LUNGS CTA B/L NO W/R/R ABD NEG NEURO AO3 NO GROSS FOCAL DEF PSYCH CALM COOPERATIVE NO ACTIVE PSYCHOSIS +NARCOTIC WITHDRAWAL +SI SKIN WARM DRY REMAINDER NEG MDM INTENTIONAL OD RO TYL TOX. Time Seen by Provider: 12/21/18 01:01 Chief Complaint (Nursing): Substance Abuse History Per: Patient History/Exam Limitations: intoxication Onset/Duration Of Symptoms: Hrs (22:00) Current Symptoms Are (Timing): Still Present Suicide/Self Injury Attempted (Context): Ingestion Modifying Factor(s): Alcohol, Narcotics Associated Symptoms: Depression, Suicidal Thoughts, Suicidal Plan Recent travel outside of the [place]: No Additional History Per: Patient Past Medical History Reviewed: Historical Data, Nursing Documentation, Vital Signs Vital Signs: Last Vital Signs Temp 99 F 12/21/18 00:13 Pulse 152 H 12/21/18 00:13 Resp 20 12/21/18 00:13 BP 133/72 12/21/18 00:13 Pulse Ox 95 12/21/18 00:13 Primary Care Provider: FAMILY PROVIDER,NO - Medical History PMH: Anxiety, Depression Denies: Diabetes, Hepatitis, HIV, HTN, Chronic Kidney Disease, Seizures, Sexually Transmitted Disease Surgical History: No Surg Hx - [facility] Procedures DETOXIFICATION SERVICES FOR SUBSTANCE ABUSE TREATMENT (02/25/18) GROUP MOBILE APPLICATION DEVELOPER FOR SUBSTANCE ABUSE TREATMENT, PSYCHOEDUCATION (02/25/18) GROUP MOBILE APPLICATION DEVELOPER FOR SUBSTANCE ABUSE, COGNITIVE BEHAVIORAL (02/25/18) INDIV PSYCHOTHERAPY FOR SUBSTANCE ABUSE TREATMENT, SUPPORT (02/25/18) INDIV PSYCHOTHERAPY FOR SUBSTANCE ABUSE, COGNITIV BEHAVIORAL (02/25/18) INDIV PSYCHOTHERAPY FOR SUBSTANCE ABUSE, PSYCHOEDUCATION (02/25/18) Family History: States: Unknown Family Hx - Social History Hx Alcohol Use: Yes Hx Substance Use: Yes (heroin & coccaine) - Immunization History Hx Tetanus Toxoid Vaccination: No Hx Influenza Vaccination: No Hx Pneumococcal Vaccination: No Review Of Systems Constitutional: Negative for: Fever, Chills Cardiovascular: Negative for: Chest Pain, Palpitations Respiratory: Negative for: Shortness of Breath Gastrointestinal: Negative for: Nausea, Vomiting, Abdominal Pain Skin: Negative for: Rash Psych: Positive for: Depression, Suicidal ideation Physical Exam - Physical Exam Appears: Non-toxic Skin: Normal Color, Warm, Dry Head: Atraumatic, Normacephalic Eye(s): bilateral: Normal Inspection, PERRL, EOMI Oral Mucosa: Moist Neck: Normal ROM, Supple Chest: Symmetrical Cardiovascular: Rhythm Regular Respiratory: Normal Breath Sounds, No Rales, No Rhonchi, No Wheezing Gastrointestinal/Abdominal: Soft, No Tenderness, No Distention Extremity: Bilateral: Atraumatic, Normal Color And Temperature, Normal ROM Neurological/Psych: Oriented x3, Other (no gross focal deficit. No active psychosis. (+) Narcotic withdrawal, (+) SI) Gait: Unable To Assess ED Course And Treatment - Laboratory Results Result Diagrams: 12/21/18 01:04 12/21/18 01:04 ECG: Interpreted By [place] ECG Rhythm: Sinus Rhythm ECG Interpretation: Normal Rate From EC O2 Sat by Pulse Oximetry: 95 (ON RA) Pulse Ox Interpretation: Normal - Radiology CXR: Interpreted by Ny CXR Interpretation: Yes: No Acute Disease Progress - Re-Evaluation Re-evaluation Note: 12/21/18 01:30 per michaelle [place], D/W TOX RECOMMEND SUPPORTIVE CARE. TYL LEVEL NEG. WILL REPEAT 4 HRS, OBSERVE 12/21/18 05:08 REPEAT TYLENOL NEG. EXAM UNCH PRIOR. MED CLEAR FOR PSYCH CRISIS NOTIFIED - Data Reviewed Data Reviewed: Lab, Diagnostic imaging, EKG, Old records - Critical Care Citical Care: Excluding Proc Time Critical Care Time: 90 minutes Medical Decision Making Medical Decision Making: Plan: * EKG * CXR * Labs * UA * IV fluids * 1:1 Obs MDM INTENTIONAL OD RO TYL TOX. Disposition Counseled Patient/Family Regarding: Studies Performed, Diagnosis - Disposition Disposition: HOSPITALIZED Disposition Time: 06:35 Condition: STABLE Forms: Mc4 (Congolese) - Clinical Impression Clinical Impression: Depressive disorder - Scribe Statement The provider has reviewed the documentation as recorded by the Scribe Qamar Muñoz All medical record entries made by the Scribe were at my direction and personally dictated by me. I have reviewed the chart and agree that the record accurately reflects my personal performance of the history, physical exam, medical decision making, and the department course for this patient. I have also personally directed, reviewed, and agree with the discharge instructions and disposition.
[2018-12-21 01:11] LABS: BASO % 0.7 % (0.0-2.0); EOS # 0.4 K/uL (0.0-0.7); LYMPH # 2.4 K/uL (1.0-4.3); LYMPH % 40.9 % (20.0-40.0); MEAN CELL VOLUME 95.3 fL (80.0-94.0); MEAN CORPUSCULAR HEMOGLOBIN 34.1 pg (27.0-31.0); MEAN CORPUSCULAR HGB CONC 35.8 g/dL (33.0-37.0); MONO # 0.8 K/uL (0.0-0.8); MONO % 14.4 % (0.0-10.0); NEUT # 2.2 K/uL (1.8-7.0); NRBC % 0.1 % (0.0-2.0); RBC 4.11 Mil/uL (4.40-5.90); RED CELL DISTRIBUTION WIDTH 12.7 % (11.5-14.5); WHITE BLOOD COUNT 5.9 K/uL (4.8-10.8)
[2018-12-21 01:32] LABS: ALB/GLOB RATIO 1.3 (1.0-2.1); ALT/SGPT 20 U/L (21-72); AST/SGOT 27 U/L (17-59); BLOOD UREA NITROGEN 14 mg/dL (9-20); GFR NON-AFRICAN AMERICAN > 60
[2018-12-21 01:46] LABS: URINE BILIRUBIN NEGATIVE (NEGATIVE); URINE BLOOD NEGATIVE (NEGATIVE); URINE CLARITY Clear (Clear); URINE COLOR Yellow (YELLOW); URINE GLUCOSE (UA) NORMAL (Normal); URINE LEUKOCYTE ESTERASE NEG Leu/uL (Negative); URINE PROTEIN NEGATIVE (NEGATIVE); URINE UROBILINOGEN NORMAL mg/dL (0.2-1.0)
[2018-12-21 01:46] LABS: INR 1.1; PARTIAL THROMBOPLASTIN TIME 31.8 SECONDS (21-34); PROTHROMBIN TIME 12.4 SECONDS (9.7-12.2)
[2018-12-21 01:56] LABS: BARBITURATES, UR NEGATIVE (NEGATIVE); BENZODIAZEPINES, UR NEGATIVE (NEGATIVE); PHENCYCLIDINE, UR NEGATIVE (NEGATIVE)
[2018-12-21 01:57] LABS: OPIATES, UR POSITIVE (NEGATIVE)
[2018-12-21] MEDS ORDERED: Sodium Chloride 0.9% 1,000 ML IV ONE (01:57)
--- NOTE | 2018-12-21 08:56 | PCM.BM ---
<Lia Hale - Last Filed: 12/21/18 08:55> Treatment Plan Problems - Problems identified on initial assessmt Polysubstance Abuse Date Initiated: 12/21/18 Time Initiated: 08:55 Assessment reference: NA Status: Active Suicidal Ideations Date Initiated: 12/21/18 Time Initiated: 08:55 Assessment reference: NA Status: Active Treatment assets and liabiliti Patient Assests: cooperative, ADL independent, physically healthy, negotiates basic needs Patient Liabilities: financial problems, substance abuse - Milieu Protocol Maintain good personal hygiene: daily Encourage regular showers, daily Remind patient to perform daily oral care, daily Assist patient to perform ADL's Conduct patient checks and document Observation sheet: Q15 minutes Maintain personal safety: every shift Educate patient to report safety concerns to staff, every shift Monitor environment for contraband/sharps Medication safety: Monitor for expected outcome, potential side effects: every shift, Assess barriers to learning: every shift, Assess readiness for medication education: every shift <Alexandra Burns - Last Filed: 12/23/18 11:26> - Diagnosis (1) Depressive disorder Status: Acute Interventions: 12/23/18 11:26 * Assess/adjust medications daily and /or as needed * See patient on an individual basis 7x/week to assess symptoms of depression * Monitor for side effects & effectiveness of medications * (2) Opioid use disorder, severe, dependence Status: Acute Interventions: 12/23/18 11:26 * Assess 7x/week regarding severity of withdrawal * Educate regarding risks, benefits, side effects and alternatives of medications * Use Motivational Interviewing for abstinence * Use CBT for relapse prevention * Medication management for withdrawal symptoms * Encourage medication assisted treatment * <Henny Salazar - Last Filed: 12/23/18 12:59> Family Contact Family involvement: Patient does not wish Family/SO involvement Family contact: Patient declines to allow family contact at present - Goals for Treatment Patient goals for treatment: "I just want to go home." Discharge/Continuing Care - Education Needs Education Needs: Patient Medication, Patient Diagnosis/Disease Process, Patient Coping Skills, Patient Placement options, Patient Community resources - Discharge Discharge Criteria: Free of Suicidal thoughts, Free of paranoid thoughts, Normal sleep pattern, No longer exhibiting s/s of withdrawal, Reduction of target symptoms Discharge to:: Home - Treatment Team Participation Discussed with Family/SO: No Was Patient/Family/SO present at Treatment Team Meeting: Yes
[2018-12-21] MEDS ORDERED: Aluminum Hydroxide/Magnesium Hydroxide Susp (30 mL) PO PRN (09:15)
--- NOTE | 2018-12-21 09:15 | PCM.PSYCH ---
Initial Psychiatric Evaluation - Initial Psychiatric Evaluation Type of Admission: Voluntary Legal Status: Capacity Chief Complaint (in patient's own words): "I'm depressed" History of Present Illness and Precipitating Events: Patient is a 23 year old unemployed single (no child) male who lives with his father. 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 He admits to using 10-12 bags of heroin a day which he injects. He used to do less last year when he was admitted to our detox floor. The patient also injects cocaine and UDS is positive but for some reason he denied it on admission. He smokes 10 cigarettes a day. The patient states that his plan is to go to rehab from here. The patient was admitted to detox 2-3 times but no rehab. He states that he relapsed last year. He says he has been depressed for weeks but just thought about suicide yesterday. Not suicidal now but still feels depressed. No psychosis or marialuisa. Past medical Hx: none Social hx: unemployed, lives with his father Family psych hx: denies Past Psychiatric History - Past Psychiatric History Pertinent Medical Hx (Current Medical&Sleep Prob, Allergies): Allergies Allergy/AdvReac Type Severity Reaction Status Date / Time No Known Allergies Allergy Verified 07/28/18 21:49 Ibuprofen [Motrin Tab] 800 mg PO TID PRN #20 tab 07/28/18 Review of Systems - Psychiatric Psychiatric: Abnormal Sleep Pattern, Anhedonia, Anxiety, Change in Appetite, Depression, Difficulty Concentrating, Irritability. absent: Homicidal Ideation, Suicidal Ideation Mental Status Examination - Personal Presentation Personal Presentation: Looks stated age - Affect Affect: Constricted - Motor Activity Motor Activity: Calm - Reliability in Providing Information Reliability in Providing Information: Good - Speech Speech: Organized - Mood Mood: Depressed, Anxious - Formal Thought Process Formal Thought Process: No Impairment - Cognitive Functions Orientation: Person, Place, Situation, Time Sensorium: Drowsy Attention/Concentration: Easily distracted Abstract Thinking: [place] Estimate of Intelligence: Below average Judgement: Imparied, as evidence by: Poor judgement Memory: Recent intact, as evidence by: 3/3 object recall, Remote impaired as evidenced by: Inability to recall sig life events - Risk Risk: Withdrawal, Diminished functioning - Strength & Assets Inventory Strength & Assets Inventory: Family support, Cooperative - Limitations Limitations: Other DSM 5 DX - DSM 5 DSM 5 Diagnosis: Major depression, severe Opioid use disorder, severe Opioid withdrawal Cocaine use disorder, moderate Tobacco use disorder - Recommended/Plan of Treatment Treatment Recommendations and Plan of Treatment: Major depression CBT Support Indiv and group tx Remeron Opioid use disorder severe CBT Psychoeducation Supportive therapy, individual therapy Use [place] for abstinence Opiod withdrawal psychoeducation Methadone taper Clonidine if necessary Cocaine use disorder moderate Monitor signs and symptoms Use [place] for abstinence Tobacco use disorder CBT Psychoeducation Use [place] for abstinence Nicotine patch if needed 35 min Projected ELOS: 5 days - Smoking Cessation Smoking Cessation Initiated: Yes
--- NOTE | 2018-12-21 14:04 | RAD ---
Date of service: 12/21/2018 HISTORY: OVERDOSE COMPARISON: Comparison chest 03/06/2018. TECHNIQUE: 1 view obtained. FINDINGS: LUNGS: No active pulmonary disease. PLEURA: No significant pleural effusion identified, no pneumothorax apparent. CARDIOVASCULAR: No aortic atherosclerotic calcification present. Normal cardiac size. No pulmonary vascular congestion. OSSEOUS STRUCTURES: No significant abnormalities. VISUALIZED UPPER ABDOMEN: Normal. OTHER FINDINGS: None. IMPRESSION: No active disease.
[2018-12-22 06:56] VITALS: O2SAT 98
--- NOTE | 2018-12-22 11:25 | PCM.PYCHPN ---
Psychiatric Progress Note - Psychiatric Progress Note Patient seen today, length of contact: 17 min Patient Chief Complaint: "I'm not well" Problems Identified/Issues Discussed: The pt is seen, chart reviewed, case is discussed with staff. The pt is compliant with medications and reports no side-effects. Symptoms are improving but needs more time to stabilize and to avoid relapse. Pt attends groups and activities. Support given, psycho-education provided. After care discussed. Medication Change: Yes (meds adjusted) Medical Record Reviewed: Yes Mental Status Examination - Cognitive Function Orientation: Person, Place, Situation, Time Memory: Intact Attention: WNL Concentration: Poor Association: WNL Fund of Knowledge: WNL - Mood Mood: Depressed, Anxious - Affect Affect: Constricted - Speech Speech: Appropriate - Formal Thought Process Formal Thought Process: No Impairment - Suicidal Ideation Suicidal Ideation: No - Homicidal Ideation Homicidal Ideation: No Goal/Treatment Plan - Goal/Treatment Plan Need for Continued Stay: Discharge may exacerbated symptoms, Severe functional impairment Progress Toward Problem(s) and Goals/Treatment Plan: Major depression CBT Support Indiv and group tx Remeron Opioid use disorder severe CBT Psychoeducation Supportive therapy, individual therapy Use [place] for abstinence Opiod withdrawal psychoeducation Methadone taper Clonidine if necessary Cocaine use disorder moderate Monitor signs and symptoms Use [place] for abstinence Tobacco use disorder CBT Psychoeducation Use [place] for abstinence Nicotine patch if needed
--- NOTE | 2018-12-23 10:49 | PCM.PYCHPN ---
Psychiatric Progress Note - Psychiatric Progress Note Patient seen today, length of contact: 17 min Patient Chief Complaint: I am feeling depressed.' Problems Identified/Issues Discussed: Patient seen and evaluated, chart reviewed and discussed with the nurse. Pt still reports depressed mood and reports feelings of hopelessness and helplessness. Patient remained somewhat disorganized and internally preoccupied. Patient remained isolated, confined and withdrawn. He still appears paranoid and delusional. He also reports some improvement in sleep. However he remained isolated and withdrawn. He is taking medications and denies any side effects Symptoms are improving but he needs more time for stabilization. Supportive therapy and psychoeducation were given. Medication Change: Yes (meds adjusted) Medical Record Reviewed: Yes Mental Status Examination - Cognitive Function Orientation: Person, Place, Situation, Time Memory: Intact Attention: WNL Concentration: Poor Association: WNL Fund of Knowledge: WNL - Mood Mood: Depressed, Anxious - Affect Affect: Constricted - Speech Speech: Appropriate - Formal Thought Process Formal Thought Process: No Impairment - Suicidal Ideation Suicidal Ideation: No - Homicidal Ideation Homicidal Ideation: No Goal/Treatment Plan - Goal/Treatment Plan Need for Continued Stay: Discharge may exacerbated symptoms, Severe functional impairment Progress Toward Problem(s) and Goals/Treatment Plan: Major depression, severe Opioid use disorder, severe Opioid withdrawal Cocaine use disorder, moderate Tobacco use disorder Major depression CBT Support Indiv and group tx Remeron Opioid use disorder severe CBT Psychoeducation Supportive therapy, individual therapy Use [place] for abstinence Opiod withdrawal psychoeducation Methadone taper Clonidine if necessary Cocaine use disorder moderate Monitor signs and symptoms Use [place] for abstinence Tobacco use disorder CBT Psychoeducation Use [place] for abstinence Nicotine patch if needed
--- NOTE | 2018-12-23 13:15 | CARD ---
APPROVED REPORT Date of service: 12/21/2018 EKG Measurement Heart [id number] <Conclusion> Normal sinus rhythm Normal ECG
[2018-12-24] MEDS ORDERED: Pneumococcal 23-Valent Vaccine IM ONE (10:00)
--- NOTE | 2018-12-24 21:58 | PCM.PYCHPN ---
Psychiatric Progress Note - Psychiatric Progress Note Patient seen today, length of contact: 17 min Patient Chief Complaint: I am feeling depressed.' Problems Identified/Issues Discussed: Patient seen and evaluated, chart reviewed and discussed with the nurse. Pt still reports depressed mood but reports some improvement in the feelings of hopelessness and helplessness. Patient remained somewhat disorganized and paranoid. Patient remained isolated, confined and withdrawn. He is on methadone taper and reports withdrawal symptoms including cramps, back pain and sweating He is taking medications and denies any side effects Symptoms are improving but he needs more time for stabilization. Supportive therapy and psychoeducation were given. Medication Change: Yes (meds adjusted) Medical Record Reviewed: Yes Mental Status Examination - Cognitive Function Orientation: Person, Place, Situation, Time Memory: Intact Attention: WNL Concentration: Poor Association: WNL Fund of Knowledge: WNL - Mood Mood: Depressed, Anxious - Affect Affect: Constricted - Speech Speech: Appropriate - Formal Thought Process Formal Thought Process: No Impairment - Suicidal Ideation Suicidal Ideation: No - Homicidal Ideation Homicidal Ideation: No Goal/Treatment Plan - Goal/Treatment Plan Need for Continued Stay: Discharge may exacerbated symptoms, Severe functional impairment Progress Toward Problem(s) and Goals/Treatment Plan: Major depression, severe Opioid use disorder, severe Opioid withdrawal Cocaine use disorder, moderate Tobacco use disorder Major depression CBT Support Indiv and group tx Remeron Opioid use disorder severe CBT Psychoeducation Supportive therapy, individual therapy Use [place] for abstinence Opiod withdrawal psychoeducation Methadone taper Clonidine if necessary Cocaine use disorder moderate Monitor signs and symptoms Use [place] for abstinence Tobacco use disorder CBT Psychoeducation Use [place] for abstinence Nicotine patch if needed
[2018-12-26 06:07] VITALS: RESP 20
[2018-12-27 06:49] VITALS: BP 106/62; PULSE 58; TEMP 98.2
--- NOTE | 2018-12-27 08:51 | PCM.PYCHPN ---
Psychiatric Progress Note - Psychiatric Progress Note Patient seen today, length of contact: 17 min Patient Chief Complaint: I am feeling depressed.' Problems Identified/Issues Discussed: Patient seen and evaluated, chart reviewed and discussed with the nurse. Pt still reports depressed mood but reports some improvement in the feelings of hopelessness and helplessness. Patient remained somewhat disorganized and paranoid. Patient remained isolated, confined and withdrawn. He is on methadone taper and reports withdrawal symptoms including cramps, back pain and sweating He is taking medications and denies any side effects Symptoms are improving but he needs more time for stabilization. Supportive therapy and psychoeducation were given. Medication Change: Yes (meds adjusted) Medical Record Reviewed: Yes Mental Status Examination - Cognitive Function Orientation: Person, Place, Situation, Time Memory: Intact Attention: WNL Concentration: Poor Association: WNL Fund of Knowledge: WNL - Mood Mood: Depressed, Anxious - Affect Affect: Constricted - Speech Speech: Appropriate - Formal Thought Process Formal Thought Process: No Impairment - Suicidal Ideation Suicidal Ideation: No - Homicidal Ideation Homicidal Ideation: No Goal/Treatment Plan - Goal/Treatment Plan Need for Continued Stay: Discharge may exacerbated symptoms, Severe functional impairment Progress Toward Problem(s) and Goals/Treatment Plan: Major depression, severe Opioid use disorder, severe Opioid withdrawal Cocaine use disorder, moderate Tobacco use disorder Major depression CBT Support Indiv and group tx Remeron Opioid use disorder severe CBT Psychoeducation Supportive therapy, individual therapy Use [place] for abstinence Opiod withdrawal psychoeducation Methadone taper Clonidine if necessary Cocaine use disorder moderate Monitor signs and symptoms Use [place] for abstinence Tobacco use disorder CBT Psychoeducation Use [place] for abstinence Nicotine patch if needed
--- NOTE | 2018-12-27 08:52 | PCM.PYCHPN ---
Psychiatric Progress Note - Psychiatric Progress Note Patient seen today, length of contact: 17 min Patient Chief Complaint: I am feeling better' Problems Identified/Issues Discussed: Patient seen and evaluated, chart reviewed and discussed with the nurse. Pt reports improvement in the depressed mood and feelings of hopelessness and helplessness. Patient remained isolated, confined and withdrawn. He appears less paranoid than before. He is on methadone taper and reports improvement in withdrawal symptoms. He is taking medications and denies any side effects Symptoms are improving but he needs more time for stabilization. Supportive therapy and psychoeducation were given. Medication Change: Yes (meds adjusted) Medical Record Reviewed: Yes Mental Status Examination - Cognitive Function Orientation: Person, Place, Situation, Time Memory: Intact Attention: WNL Concentration: Poor Association: WNL Fund of Knowledge: WNL - Mood Mood: Depressed, Anxious - Affect Affect: Constricted - Speech Speech: Appropriate - Formal Thought Process Formal Thought Process: No Impairment - Suicidal Ideation Suicidal Ideation: No - Homicidal Ideation Homicidal Ideation: No Goal/Treatment Plan - Goal/Treatment Plan Need for Continued Stay: Discharge may exacerbated symptoms, Severe functional impairment Progress Toward Problem(s) and Goals/Treatment Plan: Major depression, severe Opioid use disorder, severe Opioid withdrawal Cocaine use disorder, moderate Tobacco use disorder Major depression CBT Support Indiv and group tx Remeron Opioid use disorder severe CBT Psychoeducation Supportive therapy, individual therapy Use [place] for abstinence Opiod withdrawal psychoeducation Methadone taper Clonidine if necessary Cocaine use disorder moderate Monitor signs and symptoms Use [place] for abstinence Tobacco use disorder CBT Psychoeducation Use [place] for abstinence Nicotine patch if needed
--- NOTE | 2018-12-27 10:10 | PCM.PYCHDC ---
Mental Status Examination - Mental Status Examination Orientation: Person, Place, Situation, Time Memory: Intact Mood: Neutral Affect: Constricted Speech: Soft Attention: WNL Concentration: WNL Association: WNL Fund of Knowledge: WNL Formal Thought Process: No Impairment Description of patient's judgement and insight: good, fair Psychotic Thoughts and Behaviors: denies any AVH Suicidal Ideation: No Current Homicidal Ideation?: No Discharge Summary - Discharge Note Reason for Hospitalization: Patient is a 23 year old unemployed single (no child) male who lives with his father. 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 He admits to using 10-12 bags of heroin a day which he injects. He used to do less last year when he was admitted to our detox floor. The patient also injects cocaine and UDS is positive but for some reason he denied it on admission. He smokes 10 cigarettes a day. The patient states that his plan is to go to rehab from here. The patient was admitted to detox 2-3 times but no rehab. He states that he relapsed last year. He says he has been depressed for weeks but just thought about suicide yesterday. Not suicidal now but still feels depressed. No psychosis or marialuisa. Consultations:: List each consultation separately and include: 1. Reason for request. 2. Findings. 3. Follow-up Summary of Hospital Course include:: 1. Description of specific treatment plan utilized for patients during their course of treatmen. 2. Summarize the time- course for resolution of acute symptoms and/or regressed behaviors. 3. Describe issues identified and worked on during hospitalization. 4. Describe medication utilized. 5. Describe medical problems identified and treated. 6. Reassessment of suicide risk - Diagnosis (1) Depressive disorder Current Visit: Yes Status: Acute (2) Opioid use disorder, severe, dependence Current Visit: No Status: Acute - Final Diagnosis (DSM 5) Condition upon Discharge: STABLE DSM 5: Major depression, severe Opioid use disorder, severe Opioid withdrawal Cocaine use disorder, moderate Tobacco use disorder Disposition: HOME/ ROUTINE Follow-up Treatment Plan: Major depression, severe Opioid use disorder, severe Opioid withdrawal Cocaine use disorder, moderate Tobacco use disorder Major depression CBT Support Indiv and group tx Remeron Opioid use disorder severe CBT Psychoeducation Supportive therapy, individual therapy Use IA for abstinence Opiod withdrawal psychoeducation Methadone taper Clonidine if necessary Cocaine use disorder moderate Monitor signs and symptoms Use IA for abstinence Tobacco use disorder CBT Psychoeducation Use IA for abstinence Nicotine patch if needed Prescriptions/Medication Reconciliation: Mirtazapine [Remeron] 30 mg PO HS #30 tab
== END 2018-12-27 10:35 | disposition home or self-care (01) | DRG 744 ==
LOC: C.ER 23:57 → C.5E 12-21 06:36
PROVIDERS: ADMIT Psychiatry & Neurology Psychiatry; ATTEND Psychiatry & Neurology Psychiatry
PROC: HZ52ZZZ Individual Psychotherapy for Substance Abuse Treatment, Cognitive-Behavioral (ICD-10-PCS; principal; 2018-12-21)
PROC: HZ2ZZZZ Detoxification Services for Substance Abuse Treatment (ICD-10-PCS; 2018-12-21)
PROC: HZ59ZZZ Individual Psychotherapy for Substance Abuse Treatment, Supportive (ICD-10-PCS; 2018-12-21)
PROC: HZ56ZZZ Individual Psychotherapy for Substance Abuse Treatment, Psychoeducation (ICD-10-PCS; 2018-12-21)
PROC: HZ42ZZZ Group Counseling for Substance Abuse Treatment, Cognitive-Behavioral (ICD-10-PCS; 2018-12-21)
PROC: HZ46ZZZ Group Counseling for Substance Abuse Treatment, Psychoeducation (ICD-10-PCS; 2018-12-21)
PROC: GZHZZZZ Group Psychotherapy (ICD-10-PCS; 2018-12-21)
PROC: GZ58ZZZ Individual Psychotherapy, Cognitive-Behavioral (ICD-10-PCS; 2018-12-21)
PROC: GZ56ZZZ Individual Psychotherapy, Supportive (ICD-10-PCS; 2018-12-21)
DX: F11.23 Opioid dependence with withdrawal (principal); F32.2 Major depressive disorder, single episode, severe without psychotic features; F14.20 Cocaine dependence, uncomplicated; F17.210 Nicotine dependence, cigarettes, uncomplicated; R45.851 Suicidal ideations; F41.9 Anxiety disorder, unspecified; Z56.0 Unemployment, unspecified